=== PATIENT | female | born 2000 | race Caucasian/White ===

== ENCOUNTER 2023-03-08 15:34 | Outpatient (REF) | payer BC, SELFPAY ==
[2023-03-08 16:35] LABS: MANUAL DIFF FLAG NO
[2023-03-08 16:38] LABS: Basophils Absolute Auto 0.1 X10*3/uL (0.0-0.2); Basophils Percent Auto 0.9 % (0-2); Eosinophils Absolute Auto 0.2 X10*3/uL (0.0-0.4); Eosinophils Percent Auto 2.4 % (0-4); Hematocrit 43.5 % (37.0-47.0); Hemoglobin 14.5 g/dl (12.0-16.0); Imm Gran Abs Auto 0.02 X10*3/uL (0.00-0.03); Imm Gran Pct Auto 0.3 % (0.0-0.4); Lymphocytes Absolute Auto 2.4 X10*3/uL (1.2-4.9); Lymphocytes Percent Auto 31.2 % (20-40); Mean Corpuscular HGB Conc 33.3 g/dl (31.0-35.0); Mean Corpuscular Hemoglobin 28.8 pg (27.0-33.0); Mean Corpuscular Volume 86.3 fL (80.0-98.0); Mean Platelet Volume 9.1 fL (9.4-12.3); Monocytes Absolute Auto 0.5 X10*3/uL (0.1-1.2); Monocytes Percent Auto 6.3 % (2-11); Neutrophils Absolute Auto 4.5 x10*3/uL (2.0-8.3); Neutrophils Percent Auto 58.9 % (45-73); Platelet Count 286 X10*3/uL (160-400); Red Blood Count 5.04 X10*6/uL (4.20-5.50); Red Cell Distribution Width 12.1 % (11.0-16.0); White Blood Count 7.6 X10*3/uL (4.8-10.8)
[2023-03-08 17:39] LABS: Alanine Aminotransferase 13 U/L (0-31); Albumin Level 4.9 g/dL (3.5-5.0); Alkaline Phosphatase 49 U/L (39-117); Anion Gap 14 (12-20); Aspartate Amino Transferase 17 U/L (5-31); Bilirubin Total 1.1 mg/dL (0.0-1.0); Blood Urea Nitrogen 11 mg/dL (9-16); C Reactive Protein < 0.10 mg/dL (< or = 0.50); Calcium 10.3 mg/dL (8.4-10.2); Carbon Dioxide 23 mmol/L (22-29); Chloride 105 mmol/L (96-108); Estimated Glomerular Filt Rate > 60; Glucose Random 80 mg/dL (60-115); Sodium 138 mmol/L (135-145); Total Protein 8.4 g/dL (6.5-8.0)
[2023-03-08 17:55] LABS: TSH reflex Free T4 1.07 uIU/mL (0.32-4.0)
[2023-03-11 13:03] LABS: Transglutaminase Ab IgG <1.0 U/mL; Transglutaminase IgA <1.0 U/mL
== END 2023-03-08 15:35 | disposition home or self-care (01) ==
LOC: HO.LAB 15:34
PROVIDERS: PCP Nurse Practitioner Family; Visit Provider Nurse Practitioner
DX: R19.7 Diarrhea, unspecified (principal); Z91.09 Other allergy status, other than to drugs and biological substances
CPT/HCPCS: 36415; 80053; 84443; 85025; 86003; 86140; 86364

== ENCOUNTER 2023-03-08 15:34 | Outpatient (AMB) | payer BC, SELFPAY ==
--- NOTE | 2023-03-08 15:35 | MHC.OFFVIS ---
Intake Vital Signs 03/08/23 15:39 Height 5 ft 7 in Weight 132 lb 11.492 oz BMI 20.8 BP 104/62 Blood Pressure Location Lt brachial Position Sitting Pulse 57 Intake Visit Reasons: Irritable bowel syndrome Intake Note: Patient presents to in office visit today as a new patient for suspected IBS. CC: Patient reports that what she wakes up in the morning she has diarrhea, but other than that she is usually constipated. Also, reports having diarrhea at least once a week after dinner. Pt saw blood in the stool about a month ago. She also reports occasional, nausea, abdominal pain, and acid reflux. 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 She is referred by Nel Thomson .JUAN CARLOS [facility] practices in [facility]. PMX Diarrhea History of scoliosis * SURGICAL HISTORY [place] teeth extraction * ALLERGIES: NKDA * Octapoly LABS: None sent to us and none are in our system TODAY'S VISIT.. The problem started her first year of HS and she would have diarrhea. This did not happen when she did not have to wake up early in college. Now that she has a job that requires getting up early it started happening again. She will also have diarrhea about 2 x a week after supper with urgency. Over the summer she tends to have more CIC. If she holds her diarrheal stools then she will not move her bowels for 2-3 days which she characterizes as CIC but when she does move them the stools are soft. It will take 2-3 months to calm down. The diarrhea does not completely stop, it is just less. No testing done to date. She does not eat as much when she works but no difference in the types of foods eaten. Her brother has IBS. His was anxiety related and he seemed to have similar issues. Her mother is a pt here and has TICS but may have other bowel problems. Mom and brother are allergic to Kiwi. She has not been tested. No medication trials. She is not a fan of medicines and would rather get testing first. She does not have HB, but her mother had esophagitis and no sensation of HB. She had lost wt initially with the diarrhea, but then gained it back. She has had some nausea in the am. No vomiting and no dysphagia. We discussed the fiber supplement is a bowel equalize her as well as peppermint IBD card. Return office visit in 3 weeks [facility] Surgical History (Updated 03/08/23 @ 15:45 by MILAGROS Hanna) No pertinent past surgical history Family History (Updated 03/08/23 @ 15:44 by MILAGROS Hanna) Maternal Aunt Breast cancer Maternal Grandfather Leukemia Brother History of IBS Mother Diverticulosis GERD (gastroesophageal reflux disease) Social History Alcohol intake: never Patient Tobacco Use Status: Never used Tobacco Review of Systems Const Denies fatigue, Denies fever(s), Denies night sweats, Denies poor appetite and Denies weight loss Eyes Details: glasses Reports requires corrective lenses ENT Reports Normal hearing present, Denies dental pain, Denies dysphagia, Denies hearing loss, Denies mouth pain, Denies odynophagia, Denies throat swelling, Denies tongue swelling and Reports other (Dentition adequate) Card Reports no additional complaints Resp Reports no additional complaints GI Denies abdominal pain, Denies melena, Denies bloating, Denies hematochezia, Denies constipation, Reports GI cramping, Denies dysphagia, Denies excessive flatus, Denies early satiety, Denies heartburn, Reports diarrhea, Reports nausea, Denies odynophagia, Denies vomiting and Denies hematemesis Skin/Breast Denies pruritus, Denies lesions, Denies rash and Denies jaundice Neuro Reports Normal hearing present and Denies Abnormal speech present Endo Denies fatigue Aller/Immun Denies throat swelling and Denies tongue swelling Physical Exam Const General: cooperative, no acute distress, well developed and well groomed Nutritional Appearance: average body habitus and well nourished Orientation/consciousness: oriented to person, oriented to place and oriented to time Limitations: No language barrier HEENT Head: Yes normocephalic and Yes atraumatic Eyes General: appearance normal, both eyes and all related structures Pupils: Equal, round and reactive pupils present Neck Neck: Yes normal visual inspection and Yes no lymphadenopathy Thyroid: Thyroid normal Resp Effort & Inspection: normal respiratory effort and able to speak in complete sentences Auscultation: clear to auscultation bilaterally Cardio Rate: regular rate Rhythm: regular rhythm Heart sounds: Normal, physiologic split S2 sound present Peripheral pulses: radial pulses present and posterior tibial pulses present GI Inspection: No distended and No Abdominal panniculus present Palpation (GI): Soft to palpation, nontender, no guarding, not rigid and No hepatosplenomegaly present Percussion: Yes normal to percussion Auscultation: normal bowel sounds Rectal Exam - Female: deferred Skin General skin exam: no rashes or lesions noted, turgor normal, skin not dry, no jaundice, No spider nevi and no striae Rashes: no rashes Nails: normal Neuro General: oriented to person, oriented to place and oriented to time Cranial nerves: Yes Equal, round and reactive pupils present and Yes Normal hearing present Speech: No Abnormal speech present Extrem General: Yes normal to inspection, No clubbing, No cyanosis and No edema Psych Appearance: grossly normal and well kempt Mental Status: mental status grossly normal Speech and movement: Normal speech and movement present Affect: normal affect Attitude: cooperative Thought process: Normal thought process present and not confabulating Thought content: Normal thought content present Insight: Limited insight present (Psych) Judgement: Limited judgement present (Psych) Assessment & Plan Assessment & Plan (1) Diarrhea: Code(s): R19.7 - Diarrhea, unspecified Plan: The problem started her first year of HS and she would have diarrhea. This did not happen when she did not have to wake up early in college. Now that she has a job that requires getting up early it started happening again. She will also have diarrhea about 2 x a week after supper with urgency. Over the summer she tends to have more CIC. If she holds her diarrheal stools then she will not move her bowels for 2-3 days which she characterizes as CIC but when she does move them the stools are soft. It will take 2-3 months to calm down. The diarrhea does not completely stop, it is just less. No testing done to date. She does not eat as much when she works but no difference in the types of foods eaten. Her brother has IBS. His was anxiety related and he seemed to have similar issues. Her mother is a pt here and has TICS but may have other bowel problems. Mom and brother are allergic to Kiwi. She has not been tested. No medication trials. She is not a fan of medicines and would rather get testing first. She does not have HB, but her mother had esophagitis and no sensation of HB. She had lost wt initially with the diarrhea, but then gained it back. She has had some nausea in the am. No vomiting and no dysphagia. We discussed the fiber supplement is a bowel equalize her as well as peppermint IBD card. Return office visit in 3 weeks Orders: Orders Complete Blood Count Auto Diff Today R19.7 - Diarrhea, unspecified Pancreatic Elastase-1 Today R19.7 - Diarrhea, unspecified Rast Allergen Today R19.7 - Diarrhea, unspecified Comprehensive Met. Panel Today R19.7 - Diarrhea, unspecified C Reactive Protein Today R19.7 - Diarrhea, unspecified Transglutaminase IgA Today R19.7 - Diarrhea, unspecified Transglutaminase Ab IgG Today R19.7 - Diarrhea, unspecified TSH reflex Free T4 Today R19.7 - Diarrhea, unspecified GI Panel Today R19.7 - Diarrhea, unspecified Coding Level of Care Code New Pt Level 3 (23733) Diagnoses Diarrhea R19.7
[2023-03-08 15:39] VITALS: BP 104/62; PULSE 57; BMI 20.8
== END 2023-03-08 16:18 | disposition home or self-care (01) ==
PROVIDERS: PCP Nurse Practitioner Family; Visit Provider Nurse Practitioner
DX: R19.7 Diarrhea, unspecified (principal)
CPT/HCPCS: 99203

== ENCOUNTER 2023-03-09 10:49 | Outpatient (REF) | payer BC, SELFPAY ==
[2023-03-09 12:27] LABS: Adenovirus F 40/41 Not Detected (Not Detect.); Astrovirus Not Detected (Not Detect.); Campylobacter Not Detected (Not Detect.); Cryptosporidium Not Detected (Not Detect.); Cyclospora cayetanensis Not Detected (Not Detect.); E. coli EAEC Not Detected (Not Detect.); E. coli EPEC Not Detected (Not Detect.); E. coli ETEC Not Detected (Not Detect.); E. coli STEC Not Detected (Not Detect.); Entamoeba histolytica Not Detected (Not Detect.); Giardia lamblia Not Detected (Not Detect.); Norovirus GI/GII Not Detected (Not Detect.); Plesiomonas shigelloides Not Detected (Not Detect.); Rotavirus A Not Detected (Not Detect.); Salmonella Not Detected (Not Detect.); Sapovirus Not Detected (Not Detect.); Shigella sp./EIEC Not Detected (Not Detect.); Vibrio Not Detected (Not Detect.); Vibrio Cholerae Not Detected (Not Detect.); Yersinia enterocolitica Not Detected (Not Detect.)
[2023-03-16 17:24] LABS: Pancreatic Elastase-1 >500 mcg/g
== END 2023-03-09 10:50 | disposition home or self-care (01) ==
LOC: HO.LNP 10:49
PROVIDERS: Visit Provider Nurse Practitioner
DX: R19.7 Diarrhea, unspecified (principal)
CPT/HCPCS: 82656; 87507

== ENCOUNTER 2023-03-29 16:04 | Outpatient (AMB) | payer BC, SELFPAY ==
--- NOTE | 2023-03-29 16:06 | A.OFFVIS_ITS ---
Intake Vital Signs 03/29/23 16:07 Height 5 ft 7 in Weight 134 lb 0.657 oz BMI 21.0 BP 101/60 Blood Pressure Location Lt brachial Position Sitting Pulse 62 Intake Visit Reasons: 3 week follow up Intake Note: Patient presents to in office visit today in follow up of labs and suspected IBS. CC: Patient reports doing slightly better but continues to have symptoms of occasional diarrhea, nausea, abd pain, and acid reflux. Denies new GI symptoms. 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 This did not happen when she did not have to wake up early in college. Now that she has a job that requires getting up early it started happening again. She will also have diarrhea about 2 x a week after supper with urgency. Over the summer she tends to have more CIC. If she holds her diarrheal stools then she will not move her bowels for 2-3 days which she characterizes as CIC but when she does move them the stools are soft. It will take 2-3 months to calm down. The diarrhea does not completely stop, it is just less. No testing done to date. She does not eat as much when she works but no difference in the types of foods eaten. Her brother has IBS. His was anxiety related and he seemed to have similar issues. Her mother is a pt here and has TICS but may have other bowel problems. Mom and brother are allergic to Kiwi. She has not been tested. No medication trials. She is not a fan of medicines and would rather get testing first. She does not have HB, but her mother had esophagitis and no sensation of HB. She had lost wt initially with the diarrhea, but then gained it back. She has had some nausea in the am. No vomiting and no dysphagia. We discussed the fiber supplement is a bowel equalize her as well as peppermint AND IB GUARD. Return office visit in 3 weeks Orders: Orders Complete Blood Cou nt Auto Diff Today R19.7 - Diarrhea, unspecified Pancreatic Elastas e-1 Today R19.7 - Diarrhea, unspecified Rast Allergen Today R19.7 - Diarrhea, unspecified Comprehensive Met. Panel Today R19.7 - Diarrhea, unspecified C Reactive Protein Today R19.7 - Diarrhea, unspecified Transglutaminase I gA Today R19.7 - Diarrhea, unspecified Transglutaminase A b IgG Today R19.7 - Diarrhea, unspecified TSH reflex Free T4 Today R19.7 - Diarrhea, unspecified GI Panel Today R19.7 - Diarrhea, unspecified LABS: Laboratory Tests 03/08/23 03/09/23 16:33 09:40 WBC 7.6 Hgb 14.5 Hct 43.5 Plt Count 286 Estimated GFR > 60 Total Bilirubin 1.1 H AST 17 ALT 13 Alkaline Phosphata se 49 C-Reactive Protein < 0.10 TSH 1.07 Stool Pancreat Anabel stase >500 Tiss Transglutamin IgG <1.0 Tiss Transglutamin IgA <1.0 03/09/23-[address]: ORDERED: GI Panel Test Result Flag Reference Site Campylobacter Not Detected Not Detect. P. shigelloides Not Detected Not Detect. Salmonella Not Detected Not Detect. Vibrio Not Detected Not Detect. Vibrio Cholerae Not Detected Not Detect. Y. enterocolit. Not Detected Not Detect. E. coli EAEC Not Detected Not Detect. E. coli EPEC Not Detected Not Detect. E. coli ETEC Not Detected Not Detect. E. coli STEC Not Detected Not Detect. E. coli O157 Not applicable Not Detect. E. coli containing the O157 antigen are a subset of Shiga-like toxin-producing E. coli (STEC). Shigella/EIEC Not Detected Not Detect. Cryptosporidium Not Detected Not Detect. Cyclospora Not Detected Not Detect. E. histolytica Not Detected Not Detect. Giardia lamblia Not Detected Not Detect. Adenovirus Not Detected Not Detect. Astrovirus Not Detected Not Detect. Norovirus Not Detected Not Detect. Rotavirus A Not Detected Not Detect. Sapovirus Not Detected Not RAST ALLERGEN PANEL SHOWS NO SIGNIFICANT FOOD ALLERGY TODAY'S VISIT A low FODMAP diet printed for her for consideration of food intolerance.. We review the tests and there is no food allergy on the RAST panel, no celiac di sease, no infectious causes, and no elevated CRP to indicate inflammatory bowel disease. Of course, something like IBD sometimes can manifest slowly over years but given her brothers IBS diagnosis this seems less likely. For now I given the option of continuing to make regular appointments with me but she opts take the information and some samples of IBD guard and work on it herself. If her symptoms worsen or she needs more input for me she is always welcome to return to our services. She is relieved to know there is nothing serious wrong. She was more active in high school in admits this could have been out liver her anxiety and it is possible that there is some sub conscious element to her anxiety given her change in lifestyle from living at home to being at school working etc.. She is going to try to see if she can be more active again. [facility] Medical History (Updated 03/29/23 @ 16:18 by ABRAN Wallace) Diarrhea Surgical History No pertinent past surgical history Family History Maternal Aunt Breast cancer Maternal Grandfather Leukemia Brother History of IBS Mother Diverticulosis GERD (gastroesophageal reflux disease) Social History Alcohol intake: never Patient Tobacco Use Status: Never used Tobacco Review of Systems Const Denies fatigue, Denies fever(s), Denies night sweats, Denies poor appetite and Denies weight loss Eyes Details: glasses Reports requires corrective lenses ENT Reports Normal hearing present, Denies dental pain, Denies dysphagia, Denies h earing loss, Denies mouth pain, Denies odynophagia, Denies throat swelling, Denies tongue swelling and Reports other (Dentition adequate) Card Reports no additional complaints Resp Reports no additional complaints GI Denies abdominal pain, Denies melena, Denies bloating, Denies hematochezia, Denies constipation, Denies GI cramping, Denies dysphagia, Denies excessive flatus, Denies early satiety, Denies heartburn, Reports diarrhea, Denies nausea, Denies odynophagia, Denies vomiting and Denies hematemesis Skin/Breast Denies pruritus, Denies lesions, Denies rash and Denies jaundice Neuro Reports Normal hearing present and Denies Abnormal speech present Endo Denies fatigue Aller/Immun Denies throat swelling and Denies tongue swelling Physical Exam Vital Signs: Last Vital Signs Pulse 62 03/29/23 16:07 BP 101/60 03/29/23 16:07 BMI result Body Mass Index 21.0 Const General: cooperative, no acute distress, well developed and well groomed Nutritional Appearance: well nourished and thin Orientation/consciousness: oriented to person, oriented to place and oriented to time Limitations: No language barrier HEENT Head: Yes normocephalic and Yes atraumatic Eyes General: appearance normal, both eyes and all related structures Pupils: Equal, round and reactive pupils present Neck Neck: Yes normal visual inspection and Yes no lymphadenopathy Thyroid: Thyroid normal Resp Effort & Inspection: normal respiratory effort and able to speak in complete sentences Auscultation: clear to auscultation bilaterally Cardio Rate: regular rate Rhythm: regular rhythm Heart sounds: Normal, physiologic split S2 sound present Peripheral pulses: radial pulses present and posterior tibial pulses present GI Inspection: No distended and No Abdominal panniculus present Palpation (GI): Soft to palpation, nontender, no guarding, not rigid and No hepatosplenomegaly present Percussion: Yes normal to percussion Auscultation: normal bowel sounds Rectal Exam - Female: deferred Skin General skin exam: no rashes or lesions noted, turgor normal, skin not dry, no jaundice, No spider nevi and no striae Rashes: no rashes Nails: normal Neuro General: oriented to person, oriented to place and oriented to time Cranial nerves: Yes Equal, round and reactive pupils present and Yes Normal hearing present Speech: No Abnormal speech present Extrem General: Yes normal to inspection, No clubbing, No cyanosis and No edema Psych Appearance: grossly normal and well kempt Mental Status: mental status grossly normal Speech and movement: Normal speech and movement present Affect: normal affect Attitude: cooperative Thought process: Normal thought process present and not confabulating Thought content: Normal thought content present Insight: Good insight present (Psych) Judgement: Good judgement present (Psych) Results Reviewed Results Reviewed: Laboratory Tests 03/08/23 03/09/23 16:33 09:40 WBC 7.6 Hgb 14.5 Hct 43.5 Plt Count 286 Estimated GFR > 60 Total Bilirubin 1.1 H AST 17 ALT 13 Alkaline Phosphatase 49 C-Reactive Protein < 0.10 TSH 1.07 Stool Pancreat Elastase >500 Tiss Transglutamin IgG <1.0 Tiss Transglutamin IgA <1.0 03/09/23-[address]: ORDERED: GI Panel Test Result Flag Reference Site Campylobacter Not Detected Not Detect. P. shigelloides Not Detected Not Detect. Salmonella Not Detected Not Detect. Vibrio Not Detected Not Detect. Vibrio Cholerae Not Detected Not Detect. Y. enterocolit. Not Detected Not Detect. E. coli EAEC Not Detected Not Detect. E. coli EPEC Not Detected Not Detect. E. coli ETEC Not Detected Not Detect. E. coli STEC Not Detected Not Detect. E. coli O157 Not applicable Not Detect. E. coli containing the O157 antigen are a subset of Shiga-like toxin-producing E. coli (STEC). Shigella/EIEC Not Detected Not Detect. Cryptosporidium Not Detected Not Detect. Cyclospora Not Detected Not Detect. E. histolytica Not Detected Not Detect. Giardia lamblia Not Detected Not Detect. Adenovirus Not Detected Not Detect. Astrovirus Not Detected Not Detect. Norovirus Not Detected Not Detect. Rotavirus A Not Detected Not Detect. Sapovirus Not Detected Not RAST ALLERGEN PANEL SHOWS NO SIGNIFICANT FOOD ALLERGY Assessment & Plan Assessment & Plan (1) Irritable bowel syndrome with diarrhea: Comment: NEGATIVE RAST FOR FOOD ALLERGIES, NEGATIVE CELIAC WORKUP, NEGATIVE CRP Code(s): K58.0 - Irritable bowel syndrome with diarrhea Plan: Plan A low FODMAP diet printed for her for consideration of food intolerance.. We review the tests and there is no food allergy on the RAST panel, no celiac disease, no infectious causes, and no elevated CRP to indicate inflammatory bowel disease. Of course, something like IBD sometimes can manifest slowly over years but given her brothers IBS diagnosis this seems less likely. For now I given the option of continuing to make regular appointments with me but she opts take the information and some samples of IBD guard and work on it herself. If her symptoms worsen or she needs more input for me she is always welcome to return to our services. She is relieved to know there is nothing serious wrong. She was more active in high school in admits this could have been out liver her anxiety and it is possible that there is some sub conscious element to her anxiety given her change in lifestyle from living at home to being at school working etc.. She is going to try to see if she can be more active again. Again she does not like medications so that is why we have not opted for dicyclomine. Coding Level of Care Code Est Pt Level 3 (19063) Diagnoses Irritable bowel syndrome with diarrhea K58.0
[2023-03-29 16:07] VITALS: BP 101/60; PULSE 62; BMI 21.0
== END 2023-03-29 16:29 | disposition home or self-care (01) ==
PROVIDERS: PCP Nurse Practitioner Family; Visit Provider Nurse Practitioner
DX: K58.0 Irritable bowel syndrome with diarrhea (principal)
CPT/HCPCS: 99213

== ENCOUNTER → 2023-03-29 16:04 | Outpatient (BNVA) | payer BC, SELFPAY | PROVIDERS: PCP Nurse Practitioner Family; Visit Provider Nurse Practitioner ==

== ENCOUNTER 2024-05-15 13:55 | Outpatient (AMB) | payer BC, SELFPAY ==
[2024-05-15 14:09] VITALS: BP 92/54; PULSE 72
--- NOTE | 2024-05-15 14:09 | A.OFFVIS_ITS ---
Vital Signs 05/15/24 14:09 Height 5 ft 7 in Weight 127 lb 13.89 oz BMI 20.0 BP 92/54 L Blood Pressure Location Rt brachial Position Sitting Pulse 72 Intake Visit Reasons: IBS follow up Intake Note: Patient in office today in follow up of IBS. CC: Patient reports that a few weeks ago she went to the ER at [facility] with diarrhea. Per patient she was told that she was colitis. She is having now about 8 loose BMs daily. She also reports weight loss and eating smaller portions and less to avoid having to go to the bathroom. Allergies No Known Allergies Allergy (Verified 05/15/24 14:18) HPI HPI IBS follow up: Details: Assessment & Plan (1) Irritable bowel syndrome with diarrhea: Comment: NEGATIVE RAST FOR FOOD ALLERGIES, NEGATIVE CELIAC WORKUP, NEGATIVE CRP Code(s): K58.0 - Irritable bowel syndrome with diarrhea Plan: Plan A low FODMAP diet printed for her for consideration of food intolerance.. We review the tests and there is no food allergy on the RAST panel, no celiac disease, no infectious causes, and no elevated CRP to indicate inflammatory bowel disease. Of course, something like IBD sometimes can manifest slowly over years but given her brothers IBS diagnosis this seems less likely. For now I given the option of continuing to make regular appointments with me but she opts take the information and some samples of IBD guard and work on it herself. If her symptoms worsen or she needs more input for me she is always welcome to return to our services. She is relieved to know there is nothing serious wrong. She was more active in high school in admits this could have been out liver her anxiety and it is possible that there is some sub conscious element to her anxiety given her change in lifestyle from living at home to being at school working etc.. She is going to try to see if she can be more active again. Again she does not like medications so that is why we have not opted for dicyclomine. TODAYS VISIT Pt has been lost to follow up since 2022 Her IBS was resolving and she was dong well....until she developed some sort of severe diarrhea infe tion. Presented to the [facility] ER where they did a CT scan and told her she had colitis. However on reviewing that CT scan there was absolutely no indication of any colitis just that there was diarrhea and the colon. I think they were confused between the fat stranding found with the ovarian cyst. They did not do any stool studies but she did have leukocytosis of 12,000. It is entirely likely that this was either bacterial or viral but since it is now resolving and her stooling has been soft it is likely fruit list to do any stool testing. She continues to have severe fecal urgency and is moving her bowels up to 5 times a day despite the fact that the bowels are soft to formed. Obviously this is problem for her. I think what we are going to do is treat her with Zithromax as this covered the most amount of bacterial pathogens since it is too late to do stool samples and will give her some dicyclomine to use to try to ease her bowels. It is also entirely possible she is just having postinfectious bowel irritability because of the IBS. If it is not resolving or worsens then certainly we can consider doing additional testing. Return office visit at next available appointment. [facility] Medical History Diarrhea Surgical History No pertinent past surgical history Family History Maternal Aunt Breast cancer Maternal Grandfather Leukemia Brother History of IBS Mother Diverticulosis GERD (gastroesophageal reflux disease) Social History Alcohol intake: never Patient Tobacco Use Status: Never used Tobacco Review of Systems Eyes Details: glasses Physical Exam Vital Signs: Last Vital Signs Pulse 72 05/15/24 14:09 BP 92/54 L 05/15/24 14:09 BMI result Body Mass Index 20.0 Results Reviewed Results Reviewed: CT abdomen and pelvis-[facility] ER RESULT: CT Abd/Pelvis W/ IV + Oral Contrast CT Abd/Pelvis W/ IV + Oral Contrast Hx of Present Illness: pt had abd pain yesterday and thought she was constipated so she took a laxative. Has had over 20 episodes of diarrhea since. Hx of ib. Had nausea yesterday. RLQ pain; Reason: Other:; Generalized Abdominal Pain r o Appendicitis; Clinical Question(s): Appendicitis TECHNIQUE: Spiral CT through the abdomen and pelvis with IV contrast formatted in 3 planes. 75 cc of Isovue 300 was administered intravenously. This study was performed with oral contrast. Weight-based protocol using automatic tube modulation was used to optimize exposure parameters. CTDIvol Body: 8.09 mGy, DLP Body: 397 mGy*cm. COMPARISON: Correlation with subsequently performed pelvic ultrasound 04/26/2024. FINDINGS: Sales Lead Generator View Findings, Lines and Tubes: None. Visualized Chest: Lung bases are clear. No pleural effusion. The heart is normal in size. No pericardial effusion. Diaphragm: Normal. Liver: Normal. Gallbladder: Normal. No CT evidence of gallbladder pathology. Bile ducts: No biliary ductal dilation. Spleen: Normal. Pancreas: Normal. Adrenal glands: Normal. Kidneys and ureters: No hydronephrosis, stones, or suspicious masses. Bladder: Within normal limits for completely collapsed state. Reproductive organs: There is a 7.6 x 6.5 cm pelvic cystic mass which abuts and appears to arise from the LEFT ovary, density measurement of 12-14 Hounsfield units. It is slightly thick-walled, especially along the inferior aspect. There is an adjacent smaller up to 2.0 cm cystic lesion adjacent to the LEFT lateral margin. Adjacent fat stranding and mild adjacent free fluid, some of which is slightly higher than simple fluid density. Normal uterus. Stomach, small bowel, and large bowel: Normal caliber. No bowel obstruction or bowel wall thickening. No surrounding inflammatory fat stranding. Fluid within the colon suggestive of diarrhea. Appendix: No evidence of acute appendicitis. Peritoneum and retroperitoneum: Minimal free pelvic fluid, some of the fluid measuring density slightly greater than that of simple fluid. No omental or mesenteric lesions. No free air. Lymph nodes: No enlarged lymph nodes. Blood vessels: Normal. No aneurysm. No evidence of venous thrombosis. Abdominal and pelvic wall: Unremarkable. Bones: No acute abnormality. IMPRESSION: 1. Pelvic cystic mass measuring up to 7.6 cm which appears to arise from the LEFT ovary with heterogeneous thick wall. Adjacent fat stranding and minimal free fluid. Differential diagnosis includes hemorrhagic cyst, tubo-ovarian abscess, less likely endometrioma. Ovarian torsion is also considered. Preliminary [facility] report recommended pelvic ultrasound, which has already been performed at the time of final dictation. The pelvic ultrasound demonstrated a probable hemorrhagic cyst. 2. Fluid throughout the colon suggestive of diarrhea. Questionable mild wall thickening of the sigmoid colon. Agree with salient findings of preliminary report provided by [facility]. WSN: [id number] Ordering Physician: Radha Flores 10 https://[email or web address]/Rallyhood/Sqeeqee/reports/mp_unified_driver?pa rameters=^MINE^,1832 729.0,391746582.0,97449858.0,239775906.0,1121.0,%22MP_REACH%22,%22../../resou lissethes/UnifiedContent%22,%22mp_reach_v5%22,9# 04/25/24 20:17 -- -- Glucose Level ?114 https://[employer].com/Rallyhood/Sqeeqee/reports/[employer]_driver?pa rameters=^MINE^,0508192.0,215045450.0,67078987.0,328343113.0,1121.0,%22MP_REACH% 22,%22../../resources/UnifiedContent%22,%22mp_reach_v5%22,9# 04/25/24 20:17 -- -- Platelet Count 286 https://[employer].com/Rallyhood/Sqeeqee/reports/mp_unified_d river?parameters=^MINE^,3210506.0,949152128.0,49052644.0,639495635.0,1121.0,% 22MP_REACH%22,%22../../resources/UnifiedContent%22,%22mp_reach_v5%22,9# 04/25/24 20:17 -- -- WBC ?12.9 https://[employer].com/Rallyhood/Sqeeqee/reports/[employer]_driver?pa rameters=^MINE^,4510985.0,424249794.0,33866508.0,390810181.0,1121.0,%22MP_REACH% 22,%22../../resources/UnifiedContent%22,%22mp_reach_v5%22,9# 04/25/24 20:17 -- -- -HEMATOLOGY (26) WBC ?12.9 https://[employer].com/[employer]allyhood/Sqeeqee/reports/Ahal[employer]_unified_driver?pa emileeeters=^MINE^,8747570.0,469665951.0,19394937.0,504320148.0,1121.0,%22MP_REACH% 22,%22../../resources/UnifiedContent%22,%22mp_reach_v5%22,9# 04/25/24 20:17 -- -- RBC 4.91 https://[employer].com/[employer]allyhood/Sqeeqee/reports/[employer]_driver?tim hebert eters=^MINE^,4880894.0,556555740.0,95240226.0,652305321.0,1121.0,%22MP_REACH% 22,%22../../resources/UnifiedContent%22,%22mp_reach_v5%22,9# 04/25/24 20:17 -- -- Hgb 14.4 https://[employer].com/[employer]hood/Sqeeqee/reports/[employer]_driver?tim heberteters=^MINE^,0948806.0,504294152.0,62803152.0,978637880.0,1121.0,%22MP_REACH% 22,%22../../resources/UnifiedContent%22,%22mp_reach_v5%22,9# 04/25/24 20:17 -- -- Hct 41.7 https://[employer].com/[employer]/Sqeeqee/reports/Ahal[employer]_unified_driver?tim fermin s=^MINE^,9421203.0,112041895.0,02061419.0,004672043.0,1121.0,%22MP_REACH%22,% 22../../resources/UnifiedContent%22,%22mp_reach_v5%22,9# 04/25/24 20:17 -- -- MCV 84.9 https://[employer].com/[employer]/Sqeeqee/reports/mp_unified_driver?pa rameters=^MINE^,2601738.0,752397860.0,67307715.0,401191981.0,1121.0,%22MP_REACH% 22,%22../../resources/UnifiedContent%22,%22mp_reach_v5%22,9# 04/25/24 20:17 -- -- MCH 29.3 https://[employer].com/[employer]/Sqeeqee/reports/mp_unified_driver?pa rameters=^M INE^,5116080.0,273396038.0,89031431.0,640880192.0,1121.0,%22MP_REACH%22,%22.. /../resources/UnifiedContent%22,%22mp_reach_v5%22,9# 04/25/24 20:17 -- -- MCHC 34.5 https://[employer].com/[employer]/Sqeeqee/reports/mp_unified_driver?pa rameters=^MINE^,5375640.0,390784014.0,57052817.0,322039991.0,1121.0,%22MP_REACH% 22,%22../../resources/UnifiedContent%22,%22mp_reach_v5%22,9# 04/25/24 20:17 -- -- Platelet Count 286 https://[employer].com/[employer]hood/Sqeeqee/reports/mp_unified_driver?pa emileee ters=^MINE^,5860029.0,165423741.0,70326545.0,936060155.0,1121.0,%22MP_REACH%2 2,%22../../resources/UnifiedContent%22,%22mp_reach_v5%22,9# 04/25/24 20:17 -- -- RDW-SD 37.6 https://[employer].com/[employer]allyhood/Sqeeqee/reports/mp_unified_driver?pa rameters=^MINE^,1437462.0,881744220.0,72620899.0,836422563.0,1121.0,%22MP_REACH% 22,%22../../resources/UnifiedContent%22,%22mp_reach_v5%22,9# 04/25/24 20:17 -- -- MPV 9.4 https://[employer].com/[employer]allyhood/Sqeeqee/reports/mp_unified_driver?pa ramete rs=^MINE^,6405411.0,730111361.0,05466214.0,872607754.0,1121.0,%22MP_REACH%22, %22../../resources/UnifiedContent%22,%22mp_reach_v5%22,9# 04/25/24 20:17 -- -- Nucleated RBC (Automated) 0.0 https://[employer].com/Rallyhood/Sqeeqee/reports/mp_unified_driver?pa rameters=^MINE^,6301033.0,057636252.0,87712142.0,594204782.0,1121.0,%22MP_REACH% 22,%22../../resources/UnifiedContent%22,%22mp_reach_v5%22,9# 04/25/24 20:17 -- -- Abs. NRBC 0.0 https://[employer].com/[employer]allyhood/Sqeeqee/reports/mp_u nified_driver?parameters=^MINE^,9375871.0,025413755.0,99518217.0,277140871.0, 1121.0,%22MP_REACH%22,%22../../resources/UnifiedContent%22,%22mp_reach_v5%22,9# 04/25/24 20:17 -- -- Abs. Neut ?10.6 https://[employer].com/[employer]hood/Sqeeqee/reports/mp_unified_driver?pa rameters=^MINE^,0601734.0,550047887.0,98010161.0,020807828.0,1121.0,% 22MP_REACH%22,%22../../resources/UnifiedContent%22,%22mp_reach_v5%22,9# 04/25/24 20:17 -- -- Abs. Lymph 1.1 https://[employer].com/[employer]allyhood/ Sqeeqee/reports/mp_unified_driver?parameters=^MINE^,2925649.0,917050984.0,2702 5013.0,019269649.0,1121.0,%22MP_REACH%22,%22../../resources/UnifiedContent%22,%2 2mp_reach_v5%22,9# 04/25/24 20:17 -- -- Abs. Reagan ?1.1 https://[employer].com/[employer]allyhood/Sqeeqee/reports/mp_unified_driver?pa rameters=^MINE^,2142663.0,196159363.0,96745315.0,30 8974960.0,1121.0,%22MP_REACH%22,%22../../resources/UnifiedContent%22,%22mp_re ach_v5%22,9# 04/25/24 20:17 -- -- Abs. Eo 0.0 https://[employer]!/Rallyhood/Sqeeqee/reports/mp_unified_driver?parameters=^MINE^,0138317.0,1 54591092.0,64888411.0,622762073.0,1121.0,%22MP_REACH%22,%22../../resources/Unifi edContent%22,%22mp_reach_v5%22,9# 04/25/24 20:17 -- -- Abs. Baso 0.1 https://[employer].com/[employer]/Sqeeqee/reports/mp_unified_driver?pa rameters=^MINE^,0950967.0,913661783.0,28510812. 0,244898988.0,1121.0,%22MP_REACH%22,%22../../resources/UnifiedContent%22,%22m p_reach_v5%22,9# 04/25/24 20:17 -- -- Neut % ?81.7 https://[employer]/Rallyhood/Sqeeqee/reports/mp_unified_driver?parameters=^MT NE^,7530361.0,232190359.0,83267161.0,244995115.0,1121.0,%22MP_REACH%22,%22../../ resources/UnifiedContent%22,%22mp_reach_v5%22,9# 04/25/24 20:17 -- -- Lymph % ?8.7 https://[employer].com/[employer]hood/Sqeeqee/reports/mp_unified_driver?pa rameters=^MINE^,1219986 .0,883967722.0,14099376.0,627539071.0,1121.0,%22MP_REACH%22,%22../../resource s/UnifiedContent%22,%22mp_reach_v5%22,9# 04/25/24 20:17 -- -- Reagan % 8.7 https://[employer].com/[employer]hood/Sqeeqee/reports/Ahalogy_unified_driver?pa rameters=^MINE^,6609827.0,795589131.0,15248638.0,840140998.0,1121.0,%22MP_REACH% 22,%22../../resources/UnifiedContent%22,%22mp_reach_v5%22,9# 04/25/24 20:17 -- -- Eos % 0.2 https://[employer].com/[employer]hood/Sqeeqee/reports/mp_unified_driver?pa rameters=^MINE^,9983695. 0,491360836.0,97495724.0,738100118.0,1121.0,%22MP_REACH%22,%22../../resources /UnifiedContent%22,%22mp_reach_v5%22,9# 04/25/24 20:17 -- -- Baso % 0.4 h ttps://[employer].com/[employer]allyhood/Sqeeqee/reports/mp_unified_driver?par ameters=^MINE^,0074878.0,318309859.0,45661746.0,860231278.0,1121.0,%22MP_REACH%2 2,%22../../resources/UnifiedContent%22,%22mp_reach_v5%22,9# 04/25/24 20:17 -- -- Imm Gran 0.3 https://[employer].com/[employer]hood/Sqeeqee/reports/Ahalogy_unified_driver?pa rameters=^MINE^,227605 9.0,576320565.0,73925375.0,664905194.0,1121.0,%22MP_REACH%22,%22../../resourc es/UnifiedContent%22,%22mp_reach_v5%22,9# 04/25/24 20:17 -- -- Abs. Imm Gran 0.0 https://[employer].com/Rallyhood/Sqeeqee/reports/Ahalogy_unified_driver?pa rameters=^MINE^,8034828.0,205171480.0,06070205.0,703949436.0,1121.0,%22MP_REACH% 22,%22../../resources/UnifiedContent%22,%22mp_reach_v5%22,9# 04/25/24 20:17 -- -- Hold Lavender Top SPECIMEN DISCARDED AFTER 24 HOURS. https://[employer]i.com/Rallyhood/Sqeeqee/r eports/mp_unified_driver?parameters=^MINE^,2633550.0,599547934.0,19240531.0,3 71617448.0,1121.0,%22MP_REACH%22,%22../../resources/UnifiedContent%22,%22mp_reac h_v5%22,9# 04/26/24 09:14 -- -- Hold Blue Top SPECIMEN DISCARDED AFTER 4 HOURS. https://[employer]i.com/[employer]hood/Sqeeqee/reports/mp_unified_driver?pa rameters=^MINE^,6806092.0,733202469. 0,56304764.0,842151273.0,1121.0,%22MP_REACH%22,%22../../resources/UnifiedCont ent%22,%22mp_reach_v5%22,9# 04/25/24 20:17 -- -- -CHEMISTRY (23) Sodium 134 https://[employer].com/[employer]hood/Sqeeqee/reports/mp_unified_driver?pa rameters=^MINE^,3613182.0,244916937.0,15018961.0,176930758.0,112 1.0,%22MP_REACH%22,%22../../resources/UnifiedContent%22,%22mp_reach_v5%22,9# 04/25/24 20:17 -- -- Potassium ?3.5 https://[employer]!/Rallyhood/Sqeeqee/reports/mp_unified_driver?parameters=^MINE^,1389936.0,1 73537701.0,82747562.0,387479322.0,1121.0,%22MP_REACH%22,%22../../resources/Unifi edContent%22,%22mp_reach_v5%22,9# 04/25/24 20:17 -- -- Chloride 99 https://[employer].com/Rallyhood/Sqeeqee/reports/mp_unified_driver?pa rameters=^MINE^,3743029.0,550210251.0,34703896.0, 285655782.0,1121.0,%22MP_REACH%22,%22../../resources/UnifiedContent%22,%22mp_ reach_v5%22,9# 04/25/24 20:17 -- -- Bicarbonate Level 22 https://[employer]/Rallyhood/Sqeeqee/reports/[employer]_driver?parameters=^MINE^, 2367313.0,211400529.0,89222047.0,108716728.0,1121.0,%22MP_REACH%22,%22../../reso annaces/UnifiedContent%22,%22mp_reach_v5%22,9# 04/25/24 20:17 -- -- Anion Gap 13 https://[employer].com/[employer]/Sqeeqee/reports/mp_unified_driver?pa rameters=^MINE^,8519826.0,072886180.0 ,17816934.0,438222695.0,1121.0,%22MP_REACH%22,%22../../resources/UnifiedConte nt%22,%22mp_reach_v5%22,9# 04/25/24 20:17 -- -- Glucose Level ?114 https://[employer].com/[employer]/Sqeeqee/reports/mp_unified_driver?pa rameters=^MINE^,4626478.0,586708786.0,99393520.0,684197136.0,1121.0,%22MP_REACH% 22,%22../../resources/UnifiedContent%22,%22mp_reach_v5%22,9# 04/25/24 20:17 -- -- BUN 10 https://[employer].com/[employer]hood/Sqeeqee/reports/[employer]_driver?pa marli=^MINE^,5386102 .0,455133513.0,99710421.0,530729997.0,1121.0,%22MP_REACH%22,%22../../resource s/UnifiedContent%22,%22mp_reach_v5%22,9# 04/25/24 20:17 -- -- Creatinine-Blood 0.79 https://[employer].com/[employer]/Sqeeqee/reports/[employer]_driver?pa marli=^MINE^,0520393.0,410984873.0,70444537.0,315983831.0,1121.0,%22MP_REACH% 22,%22../../resources/UnifiedContent%22,%22mp_reach_v5%22,9# 04/25/24 20:17 -- -- Estimated GFR Creatinine *106 https://[employer].com/[employer]hood/Sqeeqee/reports/mp_Green Generation Solutionsrocio cage?parameters=^MINE^,0924589.0,873350245.0,79737602.0,789431927.0,1121.0,%2 2MP_REACH%22,%22../../resources/UnifiedContent%22,%22mp_reach_v5%22,9# 04/25/24 20:17 -- -- Calcium 9.3 https://[employer].com/[employer]/Sqeeqee/reports/[employer]_driver?tim calles=^MINE^,6230738.0,307230555.0,12350363.0,542970862.0,1121.0,%22MP_REACH% 22,%22../../resources/UnifiedContent%22,%22mp_reach_v5%22,9# 04/25/24 20:17 -- -- Magnesium 1.9 https://[employer].com/Rallyhood/[employer]anc[employer]ages/reports/mp_unifie d_driver?parameters=^MINE^,0797334.0,114627607.0,11089774.0,751622413.0,1121. 0,%22MP_REACH%22,%22../../resources/UnifiedContent%22,%22mp_reach_v5%22,9# 04/25/24 20:17 -- -- Protein, Total ?8.3 https://[employer].com/[employer]/Sqeeqee/reports/mp_[employer]_driver?pa rameters=^MINE^,3692129.0,300731967.0,49699634.0,641602894.0,1121.0,%2 2MP_REACH%22,%22../../resources/UnifiedContent%22,%22mp_reach_v5%22,9# 04/25/24 20:17 -- -- Albumin 4.4 https://[employer].com/Rallyhood/Panceterag es/reports/mp_[employer]_driver?parameters=^MINE^,8926796.0,710807596.0,13862606 .0,359603338.0,1121.0,%22MP_REACH%22,%22../../resources/UnifiedContent%22,%22mp_ reach_v5%22,9# 04/25/24 20:17 -- -- AG Ratio 1.1 https://[employer]qeeqee/reports/mp_unified_driver?pa rameters=^MINE^,9369066.0,595560308.0,17528634.0,241768610.0,1121.0 ,%22MP_REACH%22,%22../../resources/UnifiedContent%22,%22mp_reach_v5%22,9# 04/25/24 20:17 -- -- Alkaline Phosphatase 57 https://[employer] /[employer]ee/reports/mp_unified_driver?parameters=^MINE^,4378603.0,42777 0906.0,99995917.0,258272021.0,1121.0,%22MP_REACH%22,%22../../resources/UnifiedCo ntent%22,%22mp_reach_v5%22,9# 04/25/24 20:17 -- -- Lipase 22 https://[employer]/Sqeeqee/reports/mp_unified_driver?pa rameters=^MINE^,1258113.0,390141847.0,15449450.0,967103 571.0,1121.0,%22MP_REACH%22,%22../../resources/UnifiedContent%22,%22mp_reach_ v5%22,9# 04/25/24 20:17 -- -- AST (SGOT) 15 https://[employer]. om/Rallyhood/Sqeeqee/reports/mp_unified_driver?parameters=^MINE^,3254188.0,169 770656.0,86163171.0,220316219.0,1121.0,%22MP_REACH%22,%22../../resources/Unified Content%22,%22mp_reach_v5%22,9# 04/25/24 20:17 -- -- ALT (SGPT) 12 https://[employer]/Sqeeqee/reports/mp_unified_driver?pa rameters=^MINE^,3179432.0,925579388.0,69919805.0, 147697081.0,1121.0,%22MP_REACH%22,%22../../resources/UnifiedContent%22,%22mp_ reach_v5%22,9# 04/25/24 20:17 -- -- Bilirubin, Total ?1.4 https ://[employer]/Sqeeqee/reports/mp_unified_driver?paramet ers=^MINE^,3344072.0,130111438.0,21039508.0,259106437.0,1121.0,%22MP_REACH%22,%2 2../../resources/UnifiedContent%22,%22mp_reach_v5%22,9# 04/25/24 20:17 -- -- Lactate 1.1 https://[employer]/Sqeeqee/reports/[employer]_driver?pa rameters=^MINE^,3906461.0,1 09336397.0,48578187.0,823631732.0,1121.0,%22MP_REACH%22,%22../../resources/Un ifiedContent%22,%22mp_reach_v5%22,9# 04/25/24 20:17 -- -- Beta HCG-serum, Qual NEGATIVE https://[employer]ee/reports/[employer]_driver?pa rameters=^MINE^,4676461.0,004134451.0,62172283.0,388063815.0,1121.0,%22MP_REACH% 22,%22../../resources/Fermentas InternationalContent%22,%22mp_reach_v5%22,9# 04/25/24 20:17 -- -- Hold Green Top SPECIMEN DISCARDED AFTER 1 WEEK https://[employer]qee/ reports/[employer]_driver?parameters=^MINE^,7582383.0,966623533.0,64813772.0, 885237448.0,1121.0,%22MP_REACH%22,%22../../resources/UnifiedContent%22,%22mp_rea ch_v5%22,9# 04/25/24 20:17 -- -- Hold Green Top 2 SPECIMEN DISCARDED AFTER 1 WEEK https://[employer].com/[employer]qee/reports/mp_unified_driver?pa ra meters=^BHUPINDER^,9681992.0,894932566.0,72910055.0,998167552.0,1121.0,%22MP_REACH %22,%22../../resources/UnifiedContent%22,%22mp_reach_v5%22,9# 04/25/24 20:17 Assessment & Plan Assessment & Plan (1) Irritable bowel syndrome with diarrhea: Comment: NEGATIVE RAST FOR FOOD ALLERGIES, NEGATIVE CELIAC WORKUP, NEGATIVE CRP Code(s): K58.0 - Irritable bowel syndrome with diarrhea Category: Medical (2) Enteritis: Code(s): K52.9 - Noninfective gastroenteritis and colitis, unspecified Category: Medical (3) Total bilirubin, elevated: Code(s): R17 - Unspecified jaundice Category: Medical Plan Pt has been lost to follow up since 2022 Her IBS was resolving and she was dong well....until she developed some sort of severe diarrhea infe tion. Presented to the [facility] ER where they did a CT scan and told her she had colitis. However on reviewing that CT scan there was absolutely no indication of any colitis just that there was diarrhea and the colon. I think they were confused between the fat stranding found with the ovarian cyst. They did not do any stool studies but she did have leukocytosis of 12,000. It is entirely likely that this was either bacterial or viral but since it is now resolving and her stooling has been soft it is likely fruit list to do any stool testing. She continues to have severe fecal urgency and is moving her bowels up to 5 times a day despite the fact that the bowels are soft to formed. Obviously this is problem for her. I think what we are going to do is treat her with Zithromax as this covered the most amount of bacterial pathogens since it is too late to do stool samples and will give her some dicyclomine to use to try to ease her bowels. It is also entirely possible she is just having postinfectious bowel irritability because of the IBS. If it is not resolving or worsens then certainly we can consider doing additional testing. Return office visit at next available appointment. Orders: Orders Bilirubin Total Today R17 - Unspecified jaundice Complete Blood Count Auto Diff Today R17 - Unspecified jaundice Bilirubin Direct Today R17 - Unspecified jaundice Medications: New dicyclomine 20 mg PO QID 120 tabs 3RF 30 days K58.0 - Irritable bowel syndrome with diarrhea azithromycin (Zithromax Z-Hari) For 250 mg dose pack: take 500 mg today (day 1), then 250 mg for 4 days (days 2-5) PO 6 tabs 0RF K52.9 - Noninfective gastroenteritis and colitis, unspecified Coding Level of Care Code Est Pt Level 4 (75275) Diagnoses Irritable bowel syndrome with diarrhea K58.0 Enteritis K52.9 Total bilirubin, elevated R17 Time Spent (min) 32
--- NOTE | 2024-05-15 14:09 | MHC.OFFVIS ---
Vital Signs 05/15/24 14:09 Height 5 ft 7 in Weight 127 lb 13.89 oz BMI 20.0 BP 92/54 L Blood Pressure Location Rt brachial Position Sitting Pulse 72 Intake Visit Reasons: IBS follow up Intake Note: Patient in office today in follow up of IBS. CC: Patient reports that a few weeks ago she went to the ER at [facility] with diarrhea. Per patient she was told that she was colitis. She is having now about 8 loose BMs daily. She also reports weight loss and eating smaller portions and less to avoid having to go to the bathroom. Allergies No Known Allergies Allergy (Verified 05/15/24 14:18) HPI HPI IBS follow up: Details: Assessment & Plan (1) Irritable bowel syndrome with diarrhea: Comment: NEGATIVE RAST FOR FOOD ALLERGIES, NEGATIVE CELIAC WORKUP, NEGATIVE CRP Code(s): K58.0 - Irritable bowel syndrome with diarrhea Plan: Plan A low FODMAP diet printed for her for consideration of food intolerance.. We review the tests and there is no food allergy on the RAST panel, no celiac disease, no infectious causes, and no elevated CRP to indicate inflammatory bowel disease. Of course, something like IBD sometimes can manifest slowly over years but given her brothers IBS diagnosis this seems less likely. For now I given the option of continuing to make regular appointments with me but she opts take the information and some samples of IBD guard and work on it herself. If her symptoms worsen or she needs more input for me she is always welcome to return to our services. She is relieved to know there is nothing serious wrong. She was more active in high school in admits this could have been out liver her anxiety and it is possible that there is some sub conscious element to her anxiety given her change in lifestyle from living at home to being at school working etc.. She is going to try to see if she can be more active again. Again she does not like medications so that is why we have not opted for dicyclomine. TODAYS VISIT Pt has been lost to follow up since 2022 Her IBS was resolving and she was dong well....until she developed some sort of severe diarrhea infe tion. Presented to the [facility] ER where they did a CT scan and told her she had colitis. However on reviewing that CT scan there was absolutely no indication of any colitis just that there was diarrhea and the colon. I think they were confused between the fat stranding found with the ovarian cyst. They did not do any stool studies but she did have leukocytosis of 12,000. It is entirely likely that this was either bacterial or viral but since it is now resolving and her stooling has been soft it is likely fruit list to do any stool testing. She continues to have severe fecal urgency and is moving her bowels up to 5 times a day despite the fact that the bowels are soft to formed. Obviously this is problem for her. I think what we are going to do is treat her with Zithromax as this covered the most amount of bacterial pathogens since it is too late to do stool samples and will give her some dicyclomine to use to try to ease her bowels. It is also entirely possible she is just having postinfectious bowel irritability because of the IBS. If it is not resolving or worsens then certainly we can consider doing additional testing. Return office visit at next available appointment. [facility] Medical History Diarrhea Surgical History No pertinent past surgical history Family History Maternal Aunt Breast cancer Maternal Grandfather Leukemia Brother History of IBS Mother Diverticulosis GERD (gastroesophageal reflux disease) Social History Alcohol intake: never Patient Tobacco Use Status: Never used Tobacco Review of Systems Eyes Details: glasses Physical Exam Vital Signs: Last Vital Signs Pulse 72 05/15/24 14:09 BP 92/54 L 05/15/24 14:09 BMI result Body Mass Index 20.0 Results Reviewed Results Reviewed: CT abdomen and pelvis-[facility] ER RESULT: CT Abd/Pelvis W/ IV + Oral Contrast CT Abd/Pelvis W/ IV + Oral Contrast Hx of Present Illness: pt had abd pain yesterday and thought she was constipated so she took a laxative. Has had over 20 episodes of diarrhea since. Hx of ib. Had nausea yesterday. RLQ pain; Reason: Other:; Generalized Abdominal Pain r o Appendicitis; Clinical Question(s): Appendicitis TECHNIQUE: Spiral CT through the abdomen and pelvis with IV contrast formatted in 3 planes. 75 cc of Isovue 300 was administered intravenously. This study was performed with oral contrast. Weight-based protocol using automatic tube modulation was used to optimize exposure parameters. CTDIvol Body: 8.09 mGy, DLP Body: 397 mGy*cm. COMPARISON: Correlation with subsequently performed pelvic ultrasound 04/26/2024. FINDINGS: Clerk Funeral Detail View Findings, Lines and Tubes: None. Visualized Chest: Lung bases are clear. No pleural effusion. The heart is normal in size. No pericardial effusion. Diaphragm: Normal. Liver: Normal. Gallbladder: Normal. No CT evidence of gallbladder pathology. Bile ducts: No biliary ductal dilation. Spleen: Normal. Pancreas: Normal. Adrenal glands: Normal. Kidneys and ureters: No hydronephrosis, stones, or suspicious masses. Bladder: Within normal limits for completely collapsed state. Reproductive organs: There is a 7.6 x 6.5 cm pelvic cystic mass which abuts and appears to arise from the LEFT ovary, density measurement of 12-14 Hounsfield units. It is slightly thick-walled, especially along the inferior aspect. There is an adjacent smaller up to 2.0 cm cystic lesion adjacent to the LEFT lateral margin. Adjacent fat stranding and mild adjacent free fluid, some of which is slightly higher than simple fluid density. Normal uterus. Stomach, small bowel, and large bowel: Normal caliber. No bowel obstruction or bowel wall thickening. No surrounding inflammatory fat stranding. Fluid within the colon suggestive of diarrhea. Appendix: No evidence of acute appendicitis. Peritoneum and retroperitoneum: Minimal free pelvic fluid, some of the fluid measuring density slightly greater than that of simple fluid. No omental or mesenteric lesions. No free air. Lymph nodes: No enlarged lymph nodes. Blood vessels: Normal. No aneurysm. No evidence of venous thrombosis. Abdominal and pelvic wall: Unremarkable. Bones: No acute abnormality. IMPRESSION: 1. Pelvic cystic mass measuring up to 7.6 cm which appears to arise from the LEFT ovary with heterogeneous thick wall. Adjacent fat stranding and minimal free fluid. Differential diagnosis includes hemorrhagic cyst, tubo-ovarian abscess, less likely endometrioma. Ovarian torsion is also considered. Preliminary [facility] report recommended pelvic ultrasound, which has already been performed at the time of final dictation. The pelvic ultrasound demonstrated a probable hemorrhagic cyst. 2. Fluid throughout the colon suggestive of diarrhea. Questionable mild wall thickening of the sigmoid colon. Agree with salient findings of preliminary report provided by [facility]. WSN: [id number] Ordering Physician: Radha Flores 10https://[employer]/reports/mp_unified_driver?parameters=^MINE^,6850643.0,709854472.0,51263943.0,788562344.0,1121.0,%22MP_REACH%22,%22../../resources/UnifiedContent%22,%22mp_reach_v5%22,9# 04/25/24 20:17 -- -- Glucose Level ?114https://[employer]/reports/mp_unified_driver?parameters=^MINE^,9610187.0,975701859.0,03952777.0,293946307.0,1121.0,%22MP_REACH%22,%22../../resources/UnifiedContent%22,%22mp_reach_v5%22,9# 04/25/24 20:17 -- -- Platelet Count 286https://[employer]/reports/mp_unified_driver?parameters=^MINE^,1735513.0,576588254.0,22178172.0,636513854.0,1121.0,%22MP_REACH%22,%22../../resources/UnifiedContent%22,%22mp_reach_v5%22,9# 04/25/24 20:17 -- -- WBC ?12.9https://[employer]/reports/mp_unified_driver?parameters=^MINE^,6950228.0,354890220.0,40696324.0,716591852.0,1121.0,%22MP_REACH%22,%22../../resources/UnifiedContent%22,%22mp_reach_v5%22,9# 04/25/24 20:17 -- -- -HEMATOLOGY (26) WBC ?12.9https://[employer]/reports/mp_unified_driver?parameters=^MINE^,4390835.0,118985954.0,06325229.0,006070302.0,1121.0,%22MP_REACH%22,%22../../resources/UnifiedContent%22,%22mp_reach_v5%22,9# 04/25/24 20:17 -- -- RBC 4.91https://[employer]/reports/[employer]_unified_driver?parameters=^MINE^,7540002.0,784237738.0,38900396.0,728369672.0,1121.0,%22MP_REACH%22,%22../../resources/UnifiedContent%22,%22mp_reach_v5%22,9# 04/25/24 20:17 -- -- Hgb 14.4https://[employer]/reports/mp_unified_driver?parameters=^MINE^,6479730.0,579294172.0,49406409.0,757850120.0,1121.0,%22MP_REACH%22,%22../../resources/UnifiedContent%22,%22mp_reach_v5%22,9# 04/25/24 20:17 -- -- Hct 41.7https://[employer]/reports/mp_unified_driver?parameters=^MINE^,1096808.0,763311820.0,95543159.0,043108930.0,1121.0,%22MP_REACH%22,%22../../resources/UnifiedContent%22,%22mp_reach_v5%22,9# 04/25/24 20:17 -- -- MCV 84.9https://[employer]/reports/mp_unified_driver?parameters=^MINE^,1076071.0,599725929.0,66392272.0,724162038.0,1121.0,%22MP_REACH%22,%22../../resources/UnifiedContent%22,%22mp_reach_v5%22,9# 04/25/24 20:17 -- -- MCH 29.3https://[employer]/reports/mp_unified_driver?parameters=^MINE^,9240886.0,488558454.0,29108474.0,806555065.0,1121.0,%22MP_REACH%22,%22../../resources/UnifiedContent%22,%22mp_reach_v5%22,9# 04/25/24 20:17 -- -- MCHC 34.5https://[employer]/reports/[employer] Integrated Pathology_unified_driver?parameters=^MINE^,2706626.0,700550145.0,02437399.0,733410200.0,1121.0,%22MP_REACH%22,%22../../resources/UnifiedContent%22,%22mp_reach_v5%22,9# 04/25/24 20:17 -- -- Platelet Count 286https://[employer]/reports/[employer] Integrated Pathology_unified_driver?parameters=^MINE^,4708464.0,921880684.0,82829637.0,641012158.0,1121.0,%22MP_REACH%22,%22../../resources/UnifiedContent%22,%22mp_reach_v5%22,9# 04/25/24 20:17 -- -- RDW-SD 37.6https://[employer]/reports/[employer] Integrated Pathology_Summay_driver?parameters=^MINE^,5156870.0,949840181.0,21614621.0,212662216.0,1121.0,%22MP_REACH%22,%22../../resources/UnifiedContent%22,%22mp_reach_v5%22,9# 04/25/24 20:17 -- -- MPV 9.4https://[employer]/reports/[employer] Integrated Pathology_[place]_driver?parameters=^MINE^,2652602.0,393320672.0,99503011.0,357500197.0,1121.0,%22MP_REACH%22,%22../../resources/UnifiedContent%22,%22mp_reach_v5%22,9# 04/25/24 20:17 -- -- Nucleated RBC (Automated) 0.0https://[employer]/reports/[employer] Integrated Pathology_[place]_driver?parameters=^MINE^,7370153.0,909882726.0,77347696.0,971664288.0,1121.0,%22MP_REACH%22,%22../../resources/UnifiedContent%22,%22mp_reach_v5%22,9# 04/25/24 20:17 -- -- Abs. NRBC 0.0https://[employer]/reports/[employer] Integrated Pathology_[place]_driver?parameters=^MINE^,6103580.0,765671008.0,86271509.0,428788554.0,1121.0,%22MP_REACH%22,%22../../resources/UnifiedContent%22,%22mp_reach_v5%22,9# 04/25/24 20:17 -- -- Abs. Neut ?10.6https://[employer]/reports/[employer] Integrated Pathology_[place]_driver?parameters=^MINE^,8136000.0,992838897.0,53711447.0,664382082.0,1121.0,%22MP_REACH%22,%22../../resources/UnifiedContent%22,%22mp_reach_v5%22,9# 04/25/24 20:17 -- -- Abs. Lymph 1.1https://[employer]/reports/[employer] Integrated Pathology_[place]_driver?parameters=^MINE^,0453248.0,752280683.0,93226124.0,434756985.0,1121.0,%22MP_REACH%22,%22../../resources/UnifiedContent%22,%22mp_reach_v5%22,9# 04/25/24 20:17 -- -- Abs. Gilliam ?1.1https://[employer]/reports/[employer] Integrated Pathology_[place]_driver?parameters=^MINE^,8159781.0,811746322.0,43415624.0,610327280.0,1121.0,%22MP_REACH%22,%22../../resources/UnifiedContent%22,%22mp_reach_v5%22,9# 04/25/24 20:17 -- -- Abs. Eo 0.0https://[employer]/reports/[employer] Integrated Pathology_[place]_driver?parameters=^MINE^,3856606.0,409679955.0,03932114.0,329844490.0,1121.0,%22MP_REACH%22,%22../../resources/UnifiedContent%22,%22mp_reach_v5%22,9# 04/25/24 20:17 -- -- Abs. Baso 0.1https://[employer]/reports/[employer] Integrated Pathology_[place]_driver?parameters=^MINE^,2400250.0,991571035.0,55856451.0,245700617.0,1121.0,%22MP_REACH%22,%22../../resources/UnifiedContent%22,%22mp_reach_v5%22,9# 04/25/24 20:17 -- -- Neut % ?81.7https://[employer]/reports/[employer] Integrated Pathology_[place]_driver?parameters=^MINE^,8711941.0,198415178.0,31413881.0,020510927.0,1121.0,%22MP_REACH%22,%22../../resources/UnifiedContent%22,%22mp_reach_v5%22,9# 04/25/24 20:17 -- -- Lymph % ?8.7https://[employer]/reports/[employer] Integrated Pathology_[place]_driver?parameters=^MINE^,2800524.0,843982021.0,06284063.0,338830939.0,1121.0,%22MP_REACH%22,%22../../resources/UnifiedContent%22,%22mp_reach_v5%22,9# 04/25/24 20:17 -- -- Gilliam % 8.7https://[employer]/reports/[employer] Integrated Pathology_unified_driver?parameters=^MINE^,4171635.0,341547708.0,06445517.0,328706053.0,1121.0,%22MP_REACH%22,%22../../resources/UnifiedContent%22,%22mp_reach_v5%22,9# 04/25/24 20:17 -- -- Eos % 0.2https://[employer]/reports/mp_unified_driver?parameters=^MINE^,8720023.0,220370914.0,96149492.0,329247395.0,1121.0,%22MP_REACH%22,%22../../resources/UnifiedContent%22,%22mp_reach_v5%22,9# 04/25/24 20:17 -- -- Baso % 0.4https://[employer]/reports/mp_unified_driver?parameters=^MINE^,1566464.0,730300964.0,97720639.0,220957988.0,1121.0,%22MP_REACH%22,%22../../resources/UnifiedContent%22,%22mp_reach_v5%22,9# 04/25/24 20:17 -- -- Imm Gran 0.3https://[employer]/reports/mp_unified_driver?parameters=^MINE^,3085193.0,024114820.0,68301661.0,723978665.0,1121.0,%22MP_REACH%22,%22../../resources/UnifiedContent%22,%22mp_reach_v5%22,9# 04/25/24 20:17 -- -- Abs. Imm Gran 0.0https://[employer]/reports/mp_unified_driver?parameters=^MINE^,2603434.0,075471307.0,51348158.0,015453023.0,1121.0,%22MP_REACH%22,%22../../resources/UnifiedContent%22,%22mp_reach_v5%22,9# 04/25/24 20:17 -- -- Hold Lavender Top SPECIMEN DISCARDED AFTER 24 HOURS.https://[employer]/reports/mp_unified_driver?parameters=^MINE^,6678479.0,883927440.0,98860858.0,417203462.0,1121.0,%22MP_REACH%22,%22../../resources/UnifiedContent%22,%22mp_reach_v5%22,9# 04/26/24 09:14 -- -- Hold Blue Top SPECIMEN DISCARDED AFTER 4 HOURS.https://[employer]/reports/mp_unified_driver?parameters=^MINE^,7085556.0,194234097.0,85204935.0,164959608.0,1121.0,%22MP_REACH%22,%22../../resources/UnifiedContent%22,%22mp_reach_v5%22,9# 04/25/24 20:17 -- -- -CHEMISTRY (23) Sodium 134https://[employer]/reports/[employer] Integrated Pathology_[place]_driver?parameters=^MINE^,3947859.0,100213608.0,75354132.0,137889533.0,1121.0,%22MP_REACH%22,%22../../resources/UnifiedContent%22,%22mp_reach_v5%22,9# 04/25/24 20:17 -- -- Potassium ?3.5https://[employer]/reports/[employer] Integrated Pathology_unified_driver?parameters=^MINE^,8540299.0,470248468.0,38065266.0,988239784.0,1121.0,%22MP_REACH%22,%22../../resources/[employer]ifiedContent%22,%22mp_reach_v5%22,9# 04/25/24 20:17 -- -- Chloride 99https://[employer]/reports/mp_unified_driver?parameters=^MINE^,4920730.0,092898533.0,08808745.0,862875424.0,1121.0,%22MP_REACH%22,%22../../resources/[employer]ifiedContent%22,%22mp_reach_v5%22,9# 04/25/24 20:17 -- -- Bicarbonate Level 22https://[employer]/reports/mp_unified_driver?parameters=^MINE^,0961691.0,044310603.0,98404344.0,760482442.0,1121.0,%22MP_REACH%22,%22../../resources/UnifiedContent%22,%22mp_reach_v5%22,9# 04/25/24 20:17 -- -- Anion Gap 13https://[employer]/reports/mp_unified_driver?parameters=^MINE^,2780819.0,326111664.0,02764091.0,925371451.0,1121.0,%22MP_REACH%22,%22../../resources/[employer]ifiedContent%22,%22mp_reach_v5%22,9# 04/25/24 20:17 -- -- Glucose Level ?114https://[employer]/reports/mp_unified_driver?parameters=^MINE^,0402621.0,996154143.0,46807920.0,834073108.0,1121.0,%22MP_REACH%22,%22../../resources/UnifiedContent%22,%22mp_reach_v5%22,9# 04/25/24 20:17 -- -- BUN 10https://[employer]/reports/mp_unified_driver?parameters=^MINE^,7122503.0,058914159.0,61668378.0,946475557.0,1121.0,%22MP_REACH%22,%22../../resources/UnifiedContent%22,%22mp_reach_v5%22,9# 04/25/24 20:17 -- -- Creatinine-Blood 0.79https://[employer]/reports/[facility] Path[facility]_[place]_driver?parameters=^MINE^,3780379.0,333035753.0,78174711.0,721138026.0,1121.0,%22MP_REACH%22,%22../../resources/UnifiedContent%22,%22mp_reach_v5%22,9# 04/25/24 20:17 -- -- Estimated GFR Creatinine *106https://[employer]/reports/[facility] Integrated Pathology_[place]_driver?parameters=^MINE^,2933343.0,410897905.0,52595545.0,341920454.0,1121.0,%22MP_REACH%22,%22../../resources/UnifiedContent%22,%22mp_reach_v5%22,9# 04/25/24 20:17 -- -- Calcium 9.3https://[employer]/reports/[facility] Integrated Pathology_[place]_driver?parameters=^MINE^,8142232.0,828636728.0,27381449.0,734789601.0,1121.0,%22MP_REACH%22,%22../../resources/UnifiedContent%22,%22mp_reach_v5%22,9# 04/25/24 20:17 -- -- Magnesium 1.9https://[employer]/reports/[facility] Integrated Pathology_[place]_driver?parameters=^MINE^,6727771.0,647058712.0,64312086.0,912238407.0,1121.0,%22MP_REACH%22,%22../../resources/UnifiedContent%22,%22mp_reach_v5%22,9# 04/25/24 20:17 -- -- Protein, Total ?8.3https://[employer]/reports/[facility] Integrated Pathology_[place]_driver?parameters=^MINE^,0869216.0,819995296.0,86538436.0,531886726.0,1121.0,%22MP_REACH%22,%22../../resources/UnifiedContent%22,%22mp_reach_v5%22,9# 04/25/24 20:17 -- -- Albumin 4.4https://[employer]/reports/[facility] Integrated Pathology_[place]_driver?parameters=^MINE^,6200864.0,696314256.0,19673949.0,805333847.0,1121.0,%22MP_REACH%22,%22../../resources/UnifiedContent%22,%22mp_reach_v5%22,9# 04/25/24 20:17 -- -- AG Ratio 1.1https://[employer]/reports/[facility] Integrated Pathology_[place]_driver?parameters=^MINE^,0175956.0,391316742.0,83628329.0,459418297.0,1121.0,%22MP_REACH%22,%22../../resources/UnifiedContent%22,%22mp_reach_v5%22,9# 04/25/24 20:17 -- -- Alkaline Phosphatase 57https://[employer]/reports/[facility] Integrated Pathology_[place]_driver?parameters=^MINE^,5939115.0,284547205.0,34415004.0,133171545.0,1121.0,%22MP_REACH%22,%22../../resources/UnifiedContent%22,%22mp_reach_v5%22,9# 04/25/24 20:17 -- -- Lipase 22https://[employer]/reports/mp_[place]_driver?parameters=^MINE^,0332699.0,897810479.0,92811176.0,214550821.0,1121.0,%22MP_REACH%22,%22../../resources/UnifiedContent%22,%22mp_reach_v5%22,9# 04/25/24 20:17 -- -- AST (SGOT) 15https://[employer]/reports/[facility] Integrated Pathology_[place]_driver?parameters=^MINE^,4423725.0,205550636.0,05968991.0,491988414.0,1121.0,%22MP_REACH%22,%22../../resources/UnifiedContent%22,%22mp_reach_v5%22,9# 04/25/24 20:17 -- -- ALT (SGPT) 12https://[employer]/reports/[facility] Integrated Pathology_unified_driver?parameters=^MINE^,5111908.0,827152042.0,53175422.0,572435151.0,1121.0,%22MP_REACH%22,%22../../resources/UnifiedContent%22,%22mp_reach_v5%22,9# 04/25/24 20:17 -- -- Bilirubin, Total ?1.4https://[employer]/reports/[facility] Integrated Pathology_unified_driver?parameters=^MINE^,8889082.0,588153349.0,32508698.0,376072153.0,1121.0,%22MP_REACH%22,%22../../resources/UnifiedContent%22,%22mp_reach_v5%22,9# 04/25/24 20:17 -- -- Lactate 1.1https://[employer]/reports/[facility] Integrated Pathology_[place]_driver?parameters=^MINE^,9854247.0,198152255.0,19996385.0,320224823.0,1121.0,%22MP_REACH%22,%22../../resources/UnifiedContent%22,%22mp_reach_v5%22,9# 04/25/24 20:17 -- -- Beta HCG-serum, Qual NEGATIVEhttps://[employer]/reports/[facility] Pathology_[place]_driver?parameters=^MINE^,5243825.0,726524380.0,44517172.0,726480343.0,1121.0,%22MP_REACH%22,%22../../resources/[employer]%22,%22mp_reach_v5%22,9# 04/25/24 20:17 -- -- Hold Green Top SPECIMEN DISCARDED AFTER 1 WEEKhttps://[employer]/reports/[facility] Integrated Pathology_[place]_driver?parameters=^MINE^,7108851.0,608447467.0,55798477.0,378720400.0,1121.0,%22MP_REACH%22,%22../../resources/UnifiedContent%22,%22mp_reach_v5%22,9# 04/25/24 20:17 -- -- Hold Green Top 2 SPECIMEN DISCARDED AFTER 1 WEEKhttps://[employer]/reports/[facility] Integrated Pathology_[place]_driver?parameters=^MINE^,2809188.0,753090779.0,71473742.0,360465184.0,1121.0,%22MP_REACH%22,%22../../resources/UnifiedContent%22,%22mp_reach_v5%22,9# 04/25/24 20:17 Assessment & Plan Assessment & Plan (1) Irritable bowel syndrome with diarrhea: Comment: NEGATIVE RAST FOR FOOD ALLERGIES, NEGATIVE CELIAC WORKUP, NEGATIVE CRP Code(s): K58.0 - Irritable bowel syndrome with diarrhea Category: Medical (2) Enteritis: Code(s): K52.9 - Noninfective gastroenteritis and colitis, unspecified Category: Medical (3) Total bilirubin, elevated: Code(s): R17 - Unspecified jaundice Category: Medical Plan Pt has been lost to follow up since 2022 Her IBS was resolving and she was dong well....until she developed some sort of severe diarrhea infe tion. Presented to the [facility] ER where they did a CT scan and told her she had colitis. However on reviewing that CT scan there was absolutely no indication of any colitis just that there was diarrhea and the colon. I think they were confused between the fat stranding found with the ovarian cyst. They did not do any stool studies but she did have leukocytosis of 12,000. It is entirely likely that this was either bacterial or viral but since it is now resolving and her stooling has been soft it is likely fruit list to do any stool testing. She continues to have severe fecal urgency and is moving her bowels up to 5 times a day despite the fact that the bowels are soft to formed. Obviously this is problem for her. I think what we are going to do is treat her with Zithromax as this covered the most amount of bacterial pathogens since it is too late to do stool samples and will give her some dicyclomine to use to try to ease her bowels. It is also entirely possible she is just having postinfectious bowel irritability because of the IBS. If it is not resolving or worsens then certainly we can consider doing additional testing. Return office visit at next available appointment. Orders: Orders Bilirubin Total Today R17 - Unspecified jaundice Complete Blood Count Auto Diff Today R17 - Unspecified jaundice Bilirubin Direct Today R17 - Unspecified jaundice Medications: New dicyclomine 20 mg PO QID 120 tabs 3RF 30 days K58.0 - Irritable bowel syndrome with diarrhea azithromycin (Zithromax Z-Hari) For 250 mg dose pack: take 500 mg today (day 1), then 250 mg for 4 days (days 2-5) PO 6 tabs 0RF K52.9 - Noninfective gastroenteritis and colitis, unspecified Coding Level of Care Code Est Pt Level 4 (82859) Diagnoses Irritable bowel syndrome with diarrhea K58.0 Enteritis K52.9 Total bilirubin, elevated R17 Time Spent (min) 32
--- OUTSIDE RECORDS SUMMARY | 2024-05-15 15:27 | XMS_ITS | Continuity of Care Document ---
Author Organization [facility] ter Address [address] [place] [id number]- Care Team Providers Care Nail Professional Name Role Phone Alix PRE K LEAD TEACHER, Nel [place] Primary Care Physician [phone] Encounter [facility] Date(s): 04/26/24 - 04/26/[address] [address] Discharge Disposition: A-D/C Home Attending Physician: Manjeet Ovalle MD Admitting Physician: Manjeet Ovalle MD Referring Physician: Manjeet Ovalle MD Encounter Type: Disch IP Allergies, Adverse Reactions, Alerts No Known Allergies Immunizations Given and Recorded Vaccine Date Status Refusal Reason SARS-CoV-2 (COVID-19) mRNA-1273 vaccine 05/10/21 R ecorded tetanus/diphtheria/pertussis, acel(Tdap) 1 01/30/21 Given tetanus/diphtheria/pertussis, acel(Tdap) 04/04/11 Recorded SARS-CoV-2 (COVID-19) mRNA BNT-162b2 vac 10/03/20 Recorded SARS-CoV-2 (COVID-19) mRNA BNT-162b2 vac 09/11/20 Recorded influenza virus vaccine, inactivated 01/13/20 Denzel rded influenza virus vaccine, inactivated 02/15/19 Denzel rded influenza virus vaccine, inactivated 03/08/18 Denzel rded Hepatitis A Pediatric Vaccine 11/08/17 Recorded Hepatitis A Pediatric Vaccine 05/09/17 Recorded Meningococcal Conjugate Vaccine 06/17/15 Recorded Meningococcal Conjugate Vaccine 2 04/04/11 Recorde d Human Papillomavirus Vaccine 10/04/11 Recorded Human Papillomavirus Vaccine 06/04/11 Recorded Human Papillomavirus Vaccine 04/04/11 Recorded Varicella Virus Vaccine 03/20/07 Recorded Varicella Virus Vaccine 03/28/00 Recorded Poliovirus Vaccine, Inactivated 03/05/04 Recorded Poliovirus Vaccine, Inactivated 99 Recorded Poliovirus Vaccine, Inactivated 99 Recorded Poliovirus Vaccine, Inactivated 99 Recorded Measles/Mumps/Rubella Virus Vaccine 03/09/03 Recor ded Measles/Mumps/Rubella Virus Vaccine 03/28/00 Recor ded hepatitis B pediatric vaccine 3 03/28/00 Recorded hepatitis B pediatric vaccine 4 99 Recorded hepatitis B pediatric vaccine 5 99 Recorded 1Result Comment: [facility]: [id number] 2Result Comment: [facility] 3Result Comment: [facility] 4Result Comment: [facility] 5Result Comment: [facility] Medications ibuprofen 600 mg oral tablet 600 mg, 1, tablet, By Mouth, 4 times a day, PRN, for 14 days, # 30 tablet, Refills 0, Tot. Refills 0, Acute 05/10/24 10:19:00 AM EST, for pain, 04/26/24 10:19:00 AM EST, Route to Pharmacy Electronically, [facility]/pharmacy #[id number], Partial fill upon patient request if the prescription is for a schedule II opioid drug., 170, cm, 04/25/24 23:26:00 EST, Height, 59.3, kg, 04/25/24 23:26:00 EST, Dry Weight Start Date: 04/26/24 Stop Date: 05/10/24 Status: Ordered Quantity: 30.0 Unit: tablet Repeat number: 1 ondansetron 4 mg oral tablet, disintegrating = 4 mg, By Mouth, Every 6 hours, PRN Nausea & Vomiting, for 3 days, # 5 tablet, 0 Refills, Acute 04/29/24 10:18:00 AM EST, 04/26/24 10:18:00 AM EST, Tablet, [facility]acy #[id number], Partial fill upon patient request if the prescription is for a schedule II opioid drug., 170, cm, 04/25/24 23:26:00 EST, Height, 59.3, kg, 04/25/24 23:26:00 EST, Dry Weight Start Date: 04/26/24 Stop Date: 04/29/24 Status: Ordered Quantity: 5.0 Unit: tablet Repeat number: 1 Tylenol 325 mg oral tablet 975 mg, By Mouth, Every 6 hours, PRN, for 14 days, # 30 tablet, Refills 0, Tot. Refills 0, Acute 05/10/24 10:18:00 AM EST, Pain , Moderate, 04/26/24 10:18:00 AM EST, Route to Pharmacy Electronically,[facility]/pharmacy #[id number], Partial fill upon patient request if the prescription is for a schedule II opioid drug., 170, cm, 04/25/24 23:26:00 EST, Height, 59.3, kg, 04/25/24 23:26:00 EST, Dry Weight Start Date: 04/26/24 Stop Date: 05/10/24 Status: Ordered Quantity: 30.0 Unit: tablet Repeat number: 1 Problem List Condition Confirmation Course Effective Dates Status Health St atus Informant Low blood pressure, not hypotension Confirmed Active Hx of scoliosis Confirmed Active IBS (irritable colon syndrome) Confirmed Active Annual physical exam Confirmed Active Results Radiology Reports * Exam Date Time Procedure Performing Provider Status 04/26/24 3:33 AM US Pelvic Transvaginal Taylor Calzada; Auth (Verified) Notes: (US Pelvic Transvaginal) Reason For Exam: ?TOA;Pain RESULT: US Pelvic Transvaginal US Pelvic Transabdominal, US Pelvic Doppler Comp, US Pelvic Transvaginal Reason: Pain; Clinical Question(s): TOA; Order Comment: US Pelvic Non-Ob Comp Prep COMPARISON: CT abdomen/pelvis 04/25/2024 TECHNIQUE: Transabdominal and transvaginal pelvic ultrasound with grayscale, color Doppler, and spectral Doppler analysis. FINDINGS: UTERUS: Size: 8.1 x 3.3 x 5.6 cm, volume 76.9 cc. Endometrial thickness: 0.6 cm. Morphology: Normal configuration and echotexture. Nabothian cysts present. RIGHT OVARY: Size: 3.8 x 1.6 x 1.5 cm, volume 4.6 cc. Morphology: Normal echotexture. No pathologic cysts or mass. Normal arterial and venous waveforms. LEFT OVARY: Size: 7.9 x 6.8 x 7.3 cm, volume 203.3 cc. Morphology: Normal echotexture. No pathologic cysts or mass. Normal arterial and venous waveforms. There is a large cystic lesion with lacelike reticular echoes measuring 7.2 x 6.0 x 6.5 cm. This is consistent with a large hemorrhagic cyst and corresponds to the LEFT adnexal lesion seen on enhancedCT abdomen/pelvis 04/25/2024 which exhibited an attenuation of 14 Hounsfield units. ADNEXA: Trace free fluid in the cul-de-sac, likely physiologic. IMPRESSION: Left ovarian lesion with low level echoes measuring up to 7.2 cm consistent with a large hemorrhagic cyst. Given the size, a repeat pelvic ultrasound is recommended in 6-12 weeks. No evidence of ovarian torsion. Unremarkable uterus. Trace free fluid probably physiologic. An actionable message ([facility]) has been communicated via the [employer] system on 04/26/2024 7:08 AM, Message ID [id number]. I have personally reviewed the images and I agree with this report. WSN: [id number] Ordering Physician: Kamryn Johnson Dictated By: Angelita Ellison DO Dictated Date/Time: 04/26/24 7:08 am Reviewed By: Prashanth Landrum MD Signed By: Prashanth Landrum MD Signed Date/Time: 04/26/24 7:13 am Transcribed By: GAYATRI Transcribed Date/Time: 04/26/24 4:01 am * Exam Date Time Procedure Performing Provider Status 04/26/24 3:33 AM US Pelvic Doppler Comp Taylor Calzada; Auth (Verified) Notes: (US Pelvic Doppler Comp) Reason For Exam: Pain RESULT: US Pelvic Doppler Comp US Pelvic Transabdominal, US Pelvic Doppler Comp, US Pelvic Transvaginal Reason: Pain; Clinical Question(s): TOA; Order Comment: US Pelvic Non-Ob Comp Prep COMPARISON: CT abdomen/pelvis 04/25/2024 TECHNIQUE: Transabdominal and transvaginal pelvic ultrasound with grayscale, color Doppler, and spectral Doppler analysis. FINDINGS: UTERUS: Size: 8.1 x 3.3 x 5.6 cm, volume 76.9 cc. Endometrial thickness: 0.6 cm. Morphology: Normal configuration and echotexture. Nabothian cysts present. RIGHT OVARY: Size: 3.8 x 1.6 x 1.5 cm, volume 4.6 cc. Morphology: Normal echotexture. No pathologic cysts or mass. Normal arterial and venous waveforms. LEFT OVARY: Size: 7.9 x 6.8 x 7.3 cm, volume 203.3 cc. Morphology: Normal echotexture. No pathologic cysts or mass. Normal arterial and venous waveforms. There is a large cystic lesion with lacelike reticular echoes measuring 7.2 x 6.0 x 6.5 cm. This is consistent with a large hemorrhagic cyst and corresponds to the LEFT adnexal lesion seen on enhancedCT abdomen/pelvis 04/25/2024 which exhibited an attenuation of 14 Hounsfield units. ADNEXA: Trace free fluid in the cul-de-sac, likely physiologic. IMPRESSION: Left ovarian lesion with low level echoes measuring up to 7.2 cm consistent with a large hemorrhagic cyst. Given the size, a repeat pelvic ultrasound is recommended in 6-12 weeks. No evidence of ovarian torsion. Unremarkable uterus. Trace free fluid probably physiologic. An actionable message ([facility]) has been communicated via the [employer] system on 04/26/2024 7:08 AM, Message ID [id number]. I have personally reviewed the images and I agree with this report. WSN: [id number] Ordering Physician: Kamryn Johnson Dictated By: Angelita Ellison DO Dictated Date/Time: 04/26/24 7:08 am Reviewed By: Prashanth Landrum MD Signed By: Prashanth Landrum MD Signed Date/Time: 04/26/24 7:13 am Transcribed By: GAYATRI Transcribed Date/Time: 04/26/24 4:01 am * Exam Date Time Procedure Performing Provider Status 04/26/24 3:33 AM US Pelvic Transabdominal Yesika Calzada; Auth (Verified) Notes: (US Pelvic Transabdominal) Reason For Exam: Pain RESULT: US Pelvic Transabdominal US Pelvic Transabdominal, US Pelvic Doppler Comp, US Pelvic Transvaginal Reason: Pain; Clinical Question(s): TOA; Order Comment: US Pelvic Non-Ob Comp Prep COMPARISON: CT abdomen/pelvis 04/25/2024 TECHNIQUE: Transabdominal and transvaginal pelvic ultrasound with grayscale, color Doppler, and spectral Doppler analysis. FINDINGS: UTERUS: Size: 8.1 x 3.3 x 5.6 cm, volume 76.9 cc. Endometrial thickness: 0.6 cm. Morphology: Normal configuration and echotexture. Nabothian cysts present. RIGHT OVARY: Size: 3.8 x 1.6 x 1.5 cm, volume 4.6 cc. Morphology: Normal echotexture. No pathologic cysts or mass. Normal arterial and venous waveforms. LEFT OVARY: Size: 7.9 x 6.8 x 7.3 cm, volume 203.3 cc. Morphology: Normal echotexture. No pathologic cysts or mass. Normal arterial and venous waveforms. There is a large cystic lesion with lacelike reticular echoes measuring 7.2 x 6.0 x 6.5 cm. This is consistent with a large hemorrhagic cyst and corresponds to the LEFT adnexal lesion seen on enhancedCT abdomen/pelvis 04/25/2024 which exhibited an attenuation of 14 Hounsfield units. ADNEXA: Trace free fluid in the cul-de-sac, likely physiologic. IMPRESSION: Left ovarian lesion with low level echoes measuring up to 7.2 cm consistent with a large hemorrhagic cyst. Given the size, a repeat pelvic ultrasound is recommended in 6-12 weeks. No evidence of ovarian torsion. Unremarkable uterus. Trace free fluid probably physiologic. An actionable message ([facility]) has been communicated via the [employer] system on 04/26/2024 7:08 AM, Message ID [id number]. I have personally reviewed the images and I agree with this report. WSN: [id number] Ordering Physician: Kamryn Johnson Dictated By: Angelita Ellison DO Dictated Date/Time: 04/26/24 7:08 am Reviewed By: Prashanth Landrum MD Signed By: Prashanth Landrum MD Signed Date/Time: 04/26/24 7:13 am Transcribed By: GAYATRI Transcribed Date/Time: 04/26/24 4:01 am Vital Signs Most recent to oldest [Reference Range]: 1 2 Oxygen Saturation [94-100 %] 98 % (04/26/24 8:49 AM) 99 % (04/26/24 1:42 AM) Pulse Rate [55-90 bpm] 104 bpm *H* (04/26/24 8:49 AM) 110 bpm *H* (04/26/24 1:42 AM) Blood Pressure [90-138/55-84 mm Hg] 107/ 69mm Hg (04/26/24 8:49 AM) 114/71mm Hg (04/26/24 1:42 AM) Respiratory Rate [16-30 br/min] 17 br/mi n (04/26/24 8:49 AM) 18 br/min (04/26/24 1:42 AM) Temperature [96.8-100.4 DegF] 98.0 DegF (04/26/24 8:49 AM) 98.9 DegF (04/26/24 1:42 AM) Mode of Delivery (Oxygen) Room air (04/26/24 8:49 AM) Room air (04/26/24 1:42 AM) Blood pressure sites Arm, right (04/26/24 8:49 AM) Arm, right (04/26/24 1:42 AM) Temperature Route Oral (04/26/24 8:49 AM) Oral (04/26/24 1:42 AM) Social History Social History Type Response Smoking Status Never smoker; Tobacc o user in household: No entered on: 03/01/17 Sex Sex Representation Female (finding) History and physical note * Kamryn Johnson MD: PERFORM Event Display: History and Physical Hospital Authored Date: [id number] Patient: ??WILLIAM RUIZ ? Age:??24 Years?Sex:??Female?:??2000?? Chief Complaint transfer from [place] ?TOA History of Present Illness William is a 24yo G0 who was transferred from [place] for suspected tubo-ovarian abscess. She presented 04/25 with diarrhea and fever at home starting at 1800. She requested a CT scan for concern of appendicitis. CT did not show appendicitis, did show 7.6 x 6.8 cm likely adnexal hypodense lesion within the mid pelvis which appears to abut the left ovary. She was transferred for further managementand work up of suspected TOA. Labs performed in the ED showed mild leukocytosis.? On my evaluation, she is well appearing. reports that her diarrhea has slowed down but that she had diarrhea 25 times today and has abdominal cramping. She endorses some nausea and vomiting x2 today. She is overall feeling much better now and without acute complaints, ?? She denies anything inside the vagina, no abnormal vaginal discharge. No dysuria.??No fever or chills. ?? PMH: IBS-D PSH:??none Obgyn: hx normal pap, last 01/[address] Cabello. No hx??STI. G0, never sexually active. LMP 04/07, regular menses Review of Systems negative except as noted in HPI Physical Exam Vitals & Measurements T:??98.9?F?? HR:??110??(Peripheral)?? RR:??18?? BP:??114/71?? SpO2:??99%?? General: pleasant, alert, cooperative, NAD Abdominal: Soft, mildly tender in suprapubic area, non-distended. No masses or??organomegaly appreciated. No guarding or rebound. Machine Shop Apprentice: Speculum: Normal appearing perineum, vulva, urethral meatus, vaginal and cervical mucosa, no lesions appreciated, nulliparous-appearing cervix, small amount??of dark green/brown vaginal??discharge in??posterior fornix.??Aptima collected.??no CMT.?? Bimanual: small, anteverted and mobile uterus. No adnexal fullness or tenderness. Extremities: Symmetrical muscle bulk, no visible erythema or edema.?? Psych: Mood and affect stable, appearance appropriate, good eye contact, talkative Assessment/Plan Assessment:??24yo G0 presenting as a transfer from [place] for concern of TOA vs ovarian torsion. Patient is afebrile, mildly tachycardic (likely in the setting of dehydration) and hemodynamically stable, well appearing, and with mild leukocytosis. Her pelvic exam is significant for a small amount ofdark green/brown discharge but no CMT or adnexal tenderness/masses/fullness. She has a history of IBS-D and her diarrhea and acute clinical picture are likely related to this diagnosis. CT scan in addition to 7cm adnexal mass also revealed signs of colitis and fat stranding. Ultrasound ordered for better characterization of adnexal findings. Clinical suspicion low for tubo-ovarian abscess, however, cannot rule out based on current imaging. If tubo-ovarian abscess??confirmed via ultrasound and above >5cm, would plan??for??IR??consultation. Also possibly is abscess arising from colon in the setting of her IBS. If this is the case, would consider GI consultation or transfer to medicine vs surgery service. Very low suspicion for torsion given pain presentation but doppler ultrasound ordered to rule this out. Empiric antibiotic treatment of TOA started including IV ceftriaxone, doxycycline, and metronidazole.? Will await USN result to determine further management and consideration of IR drainage. ?? Discussed with Dr. Rodriguez, attending physician ? Adnexal mass (N94.89):? TOA on CT (p) USN (p) Aptima cef/doxy/flagyl tylenol??prn for??pain zofran prn for??nausea PO hydration regular diet consider IR in AM for drainage ( ) ?? OB History History?(0,0,0,0)?No previous pregnancies history have been recorded Active Problem List Active Problem List Annual physical exam: (Medical) Hx of scoliosis: (Medical) IBS (irritable colon syndrome): (Medical) Low blood pressure, not hypotension: (Medical) Procedure/Surgical History Entire wisdom tooth Home Medications No qualifying data available. Allergies NKA Social History Alcohol Use: Never. Electronic Cigarette/Vaping Electronic Cigarette Use: Never. Employment/School Status: Employed. 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 Exercise Regular exercise: Yes. Exercise type: Walking. Home/Environment Living situation: Home/Independent. Lives with: Father, Mother. Nutrition/Health Diet: Regular. Caffeine intake amount: low. Sexual Sexually involved in last 6 months: No. Ever been sexually involved? No. Substance Abuse Use: Never. Tobacco Never smoker, Tobacco user in household: No. Family History Mother: CKD - chronic kidney disease Pat. Grandfather (): Congestive heart failure Other (great aunt): Cancer of breast * Kathi Rodirguez DO: PERFORM Event Display: History and Physical Hospital Authored Date: [id number] Late Entry: Attending Attestation:??I have seen and evaluated this patient. ??I have discussed the case and itsmanagement with?Elizabeth??and agree with the findings and plan as documented above in the resident???s note. 24yo G0 presenting as a transfer from [place] for concern of TOA vs ovarian torsion. Patient vitals notable for tachycardia secondary to dehydration from gastritis and otherwise hemodynamically stable with mild leukocytosis. Discussed while waiting for ultrasound for further work up,??per concern for transferring team for TOA vs??abscess secondary to colitis,??will start IV antibiotic treatment for suspected TOA to avoiddelay in treatment. With any acute change in pain or stability would reassess concern for torsion or needing to proceedto OR for management. Will continue to monitor closely. Hospital Progress note * Hussein MUÑOZ, Julia Gregory: PERFORM, SIGN, VERIFY Event Display: Progress Note Hospital Authored Date: [id number] Patient: WILLIAM RUIZ Age: 24 years Sex: Female : 2000 Associated Diagnoses: None Author: Hussein MUÑOZ, Julia Gregory Findings Problem Related to Alteration in Comfort : Alteration in Comfort/new 04/26/2024 4:00 EST Alteration in Comfort Related to Disease process Goals & Outcomes: Comfort Pt will report acceptable level of comfort & pain control, Resolved problem, Goals/Outcomes met Interventions Implemented: Comfort Assess pain using appropriate pain scale/tools Goals/Interventions, Comfort Yes Comfort, Problem Start 04/26/2024 6:09 Reviewed plan with, Comfort Patient Patient Progression, Comfort Pt progressing according to plan Comfort, Problem Ongoing Yes . Evaluation Patient arrived to the hospital and was assisted to bed via nursing staff .[facility] team notified patient arrived and stat ultrasound was ordered. Patient is alert and oriented she follows all commands, she is ambulatory in the room. Patient denies persistent pain. Lung sounds are clear, abdomen is flatnon tender. Patient has pelvic exam done in the room and then she went down for her ultrasound. Shereturned and was started on her abx. Patient voided in the BR and complained of significant amount of bleeding . [facility] team made aware. Patient is in bed father at bedside.Please see isaac and reta for more details.. Note * Cheryl Coles RN: PERFORM Event Display: Discharge/Transfer Note Hospital Authored Date: Nursing Discharge Note Entered On: 04/26/2024 11:02 EST Performed On: 04/26/2024 11:02 EST by Cheryl Coles RN Nursing Discharge Note 2 Discharge Time : 04/26/2024 11:00 EST Discharge Level of Care at Discharge : Home/[facility] Patient Left Unit Via : Ambulatory Patient Accompanied Off Unit with : Responsible adult DC Instructions Provided & Signed by Pt : Yes Patient Understands D/C Instructions : Yes Patient Instructions Discharge Signed : Yes Did Pt have Specialty Bed or Wound Vac : No Cheryl Coles RN - 04/26/2024 11:02 EST * Robyn Ramsey MD: PERFORM, MODIFY Event Display: Discharge/Transfer Note Hospital Authored Date: Patient: ??WILLIAM RUIZ ? Age:??24 Years?Sex:??Female?:??2000?? Admit Date Admission Date: 04/26/2024 Discharge Date 04/26/2024 Discharge Diagnoses Adnexal mass, 04/26/2024 Diarrhea, 04/26/2024 Hemorrhagic cyst of left ovary, 04/26/2024 [facility] Course William is a 24yo G0 who initially presented??as a transfer from [place] for concern of TOA vs ovariantorsion. Patient initially presented to the [place]??ED with nausea, diarrhea, abdominal pain, and fever.??She had a CT abdomen/pelvis??per her request??due??to??concern??for??possible appendicitis, and was??incidentally found to??have a??left-sided??7cm adnexal??mass, which??was concerning??for??possible??tuboovarian abscess (TOA). CT scan also revealed signs of colitis and fat stranding, which was??consistent with??her diarrhea. ?? Patient??did also have a??mild??leukocytosis, but was afebrile. Upon transfer to [facility], her pelvic exam was significant for a small amount of dark green/brown discharge but no CMT or adnexal tenderness/masses/fullness. She has a history of IBS-D and her diarrhea and acute clinical picture are likely related to this diagnosis. Empiric antibiotic treatment of TOA was started inclu ding IV ceftriaxone, doxycycline, and metronidazole.? Patient then underwent a pelvic ultrasound, which revealed a 7cm simple- appearing left-sided hemorrhagic cyst. Patient was counseled on these findings. On hospital day 1, patient's symptoms had overall improved. She remained afebrile and her abdominal exam was benign. Her diarrhea had improved and she was tolerating PO intake without any emesis. She was counseled on return precautions and cleared for discharge to home with plan for outpatient follow-up of ovarian cyst. Objective/Physical Exam on Day of Discharge Vitals & Measurements T:??98.0?F?? HR:??104??(Peripheral)?? RR:??17?? BP:??107/69?? SpO2:??98%?? Constitutional:??Patient sitting upright in no acute distress. Awake, alert, interactive. Non-toxicappearing. Respiratory:??Normal work of breathing. Breathing comfortably on room air. Cardiovascular:??No signs of fluid overload. Abdomen/GI:??Soft, non-distended, mildly tender to palpation. No rebound or guarding. Extremities:??No calf asymmetry??or edema. Skin:??No rash or jaundice. Neurological/Psychiatric:??Mood and affect congruent and stable. Assessment/Plan Assessment:??William is a 24yo G0 who initially presented to[facility] with diarrhea, abdominal pain, and fever. She had a CT scan which showed an incidental finding of a left-sided adnexal mass concerning for possible tubo- ovarian abscess (TOA). Patient was started on empiric antibiotic treatment, then had a pelvic ultrasound which demonstrated a left-sided 7cm hemorrhagic ovarian cyst. No??evidenceof torsion. Patient was counseled on this ultrasound??finding, likely physiologic in etiology. No indication for antibiotic treatment. No??indication for surgical intervention. Patient counseled on return precautions and cleared for discharge to home. ?? Hemorrhagic cyst of left ovary (N83.202):? 04/26 pelvic ultrasound:?? -- Left ovarian lesion with low level echoes measuring up to 7.2 cm consistent with a large hemorrhagic cyst. Given the size, a repeat pelvic ultrasound is recommended in 6-12 weeks. No evidence of ovarian torsion. ?? Adnexal mass (N94.89):? - Initial concern for tuboovarian abscess, patient is now s/p ceftriaxone, metronidazole, and doxycycline x1 dose -??Patient denies ever being sexually active - Patient found to have a left-sided 7cm hemorrhagic cyst - Discussed etiology, pathophysiology,??and??recommended management for hemorrhagic cysts. No indication for surgical intervention at this time. - Encourage PO hydration - Return to hospital with any??severe abdominal pain, lightheadedness, syncope, or inability to drink fluids for 24 hours - Follow-up with [facility] for outpatient?? management: Recommend repeat??imaging of??ovarian cyst??in 6-12 weeks. ?? Diarrhea (R19.7):? - Suspect viral gastrointestinal illness - Symptomatic management ?? Discussed with Dr. Rodriguez, attending. Robyn Ramsey MD OBGYN PGY2 Discharge Medications ???Acetaminophen (Tylenol 325 mg oral tablet)???Ibuprofen (ibuprofen 600 mg oral tablet)???Ondansetron (ondansetron 4 mg oral tablet, disintegrating) Immunizations during Hospitalization Vaccine Date Status SARS-CoV-2 (COVID-19) mRNA-1273 vaccine 05/10/2021 Recorded tetanus/diphtheria/pertussis, acel(Tdap) 01/30/2021 Given Comments : [facility]: [id number] SARS-CoV-2 (COVID-19) mRNA BNT-162b2 vac 10/03/2020 Recorded SARS-CoV-2 (COVID-19) mRNA BNT-162b2 vac 09/11/2020 Recorded influenza virus vaccine, inactivated 01/13/2020 Recorded influenza virus vaccine, inactivated 02/15/2019 Recorded influenza virus vaccine, inactivated 03/08/2018 Recorded Hepatitis A Pediatric Vaccine 11/08/2017 Recorded Hepatitis A Pediatric Vaccine 05/09/2017 Recorded Meningococcal Conjugate Vaccine 06/17/2015 Recorded Human Papillomavirus Vaccine 10/04/2011 Recorded Human Papillomavirus Vaccine 06/04/2011 Recorded Meningococcal Conjugate Vaccine 04/04/2011 Recorded Comments : [facility] tetanus/diphtheria/pertussis, acel(Tdap) 04/04/2011 Recorded Human Papillomavirus Vaccine 04/04/2011 Recorded Varicella Virus Vaccine 03/20/2007 Recorded Poliovirus Vaccine, Inactivated 03/05/2004 Recorded Measles/Mumps/Rubella Virus Vaccine 03/09/2003 Recorded hepatitis B pediatric vaccine 03/28/2000 Recorded Comments : [facility] Varicella Virus Vaccine 03/28/2000 Recorded Measles/Mumps/Rubella Virus Vaccine 03/28/2000 Recorded hepatitis B pediatric vaccine 1999 Recorded Comments : [facility] hepatitis B pediatric vaccine 1999 Recorded Comments : [facility] Poliovirus Vaccine, Inactivated 1999 Recorded Poliovirus Vaccine, Inactivated 1999 Recorded Poliovirus Vaccine, Inactivated 1999 Recorded Lab Results Test Name Test Result Date/Time WBC 12.9 k/mm3 04/25/2024 20:17 EST RBC 4.91 m/mm3 04/25/2024 20:17 EST Hgb 14.4 Gm/dL 04/25/2024 20:17 EST Hct 41.7 % 04/25/2024 20:17 EST MCV 84.9 femtoliters 04/25/2024 20:17 EST MCH 29.3 pg 04/25/2024 20:17 EST MCHC 34.5 Gm/dL 04/25/2024 20:17 EST Platelet Count 286 k/mm3 04/25/2024 20:17 EST RDW-SD 37.6 femtoliters 04/25/2024 20:17 EST MPV 9.4 femtoliters 04/25/2024 20:17 EST Nucleated RBC (Automated) 0.0 #/100 WBC'S 04/25/2024 20:17 EST Abs. NRBC 0.0 k/mm3 04/25/2024 20:17 EST Abs. Neut 10.6 k/mm3 04/25/2024 20:17 EST Abs. Lymph 1.1 k/mm3 04/25/2024 20:17 EST Abs. [place] 1.1 k/mm3 04/25/2024 20:17 EST Abs. Eo 0.0 k/mm3 04/25/2024 20:17 EST Abs. Baso 0.1 k/mm3 04/25/2024 20:17 EST Neut % 81.7 % 04/25/2024 20:17 EST Lymph % 8.7 % 04/25/2024 20:17 EST [place] % 8.7 % 04/25/2024 20:17 EST Eos % 0.2 % 04/25/2024 20:17 EST Baso % 0.4 % 04/25/2024 20:17 EST Imm Gran 0.3 % 04/25/2024 20:17 EST Abs. Imm Gran 0.0 k/mm3 04/25/2024 20:17 EST Patient Instructions Please call your doctor if you note any of the following symptoms: - fever of 100.4 or greater - severe abdominal pain that does not improve - lightheadedness or syncope - heavy vaginal bleeding - difficulty or burning with urination - nausea and vomiting with inability to tolerate food for 24 hours - shortness of breath or chest pain ?? Please follow-up with your Repeat Photocomposing Machine Operator for outpatient evaluation. * Kathi Rodriguez DO: PERFORM Event Display: Discharge/Transfer Note Hospital Authored Date: [id number] Attending Attestation:??I have seen and evaluated this patient. ??I have discussed the case and itsmanagement with??Dr Ramsey??and agree with the findings and plan as documented above in the resident???s note. William is a 24yo G0 who initially presented to?[facility] with diarrhea, abdominal pain, and fever. Shehad a CT scan which showed an incidental finding of a left- sided adnexal mass concerning for possible tubo-ovarian abscess (TOA). Patient was started on empiric antibiotic treatment, then had a pelvic ultrasound which demonstrated a left-sided 7cm hemorrhagic ovarian cyst. No??evidence of torsion. Patient was counseled on this ultrasound??finding, likely physiologic in etiology. No indication forantibiotic treatment. No??indication for surgical intervention. Patient counseled on return precautions and cleared for discharge to home. All questions and concerns were addressed. She agrees with plan for outpatient follow up and returnprecautions * Sanket MUÑOZ, Cheryl Velasquez: PERFORM Event Display: Patient Education/Instruction Authored Date: [id number] Inpatient Adult Discharge Instructions. [address] [address] Name: WILLIAM RUIZ : 2000?? Visit: 04/26/2024 01:37?? Current Date: 04/26/2024 10:46 ?? Account: [id number]?? Inpatient Adult Discharge Instructions We would like to thank you for allowing us to assist you with your healthcare needs. The following includes patient education materials and information regarding your injury/illness. Our entire staffstrives to provide an excellent experience for our patients and their families. PLEASE ENSURE YOU FOLLOW-UP PER THE INSTRUCTIONS BELOW! ?? YOUR OPINION IS IMPORTANT TO US! Please complete the survey you may receive by mail or email. Your feedback will be used to make improvements to the healthcare experiences of our patients and their families. Surveys are administered by [employer] ?? If further treatment with your primary care physician or another doctor is recommended, it is important for you to keep the appointment. Call your primary care physician or return to the Emergency Department immediately if your condition worsens, fails to improve, or new symptoms develop. If you need to find a doctor, you can call [facility] Link for a referral at [phone] or toll free at [phone]) or log in to [email or web address].. ?? [facility], in keeping with [facility] guidance, no longer requires face masks for staff, patientsor visitors in most situations. Similiar to time spent indoors at other locations, there is the chance that you were exposed to repiratory viruses during your time with us (such as flu or COVID-19). If you develop symptoms concerning for a viral respiratory infection, please seek testing (and treatment if indicated) from your medical provider or home test kit. ?? You can view and manage your care through the patient portal or by using a health care zita of your choosing. [employer] is a website that allows you to securely view your medical information including your hospital discharge summary, office visit summaries, medications and follow-up visits. You can also request appointments, renew medications, and request access to your medical information using a health care zita of your choosing, or just ask a question. You can enroll at [email or web address] or register during your next office visit. You have been discharged from [facility], Patient Care Unit: S3??. If you have any questions regarding these instructions, including results of studies pending, afteryou leave, please call us and we will be happy to assist you 03/12. [facility] Your Care Team Attending Physician Yamlie MCCRAY, Manjeet Chaves?? Consulting Providers Manjeet Ovalle MD?? Discharging Providers Kathi Rodriguez DO Your Diagnosis Adnexal mass Diarrhea Hemorrhagic cyst of left ovary Tests Performed Below is a partial list of the tests performed during your hospitalization. You may have had other tests and procedures not included in this list. Please discuss all test results with your provider. HOLD LAVENDER TUBE Pelvic Doppler Comp (US) Pelvic Transabdominal US Pelvic Transvaginal (US) Hold Lavender Top Tube (HOLD LAVENDER TUBE)?? US Pelvic Doppler Comp (Pelvic Doppler Comp (US))?? US Pelvic Transabdominal (Pelvic Transabdominal US)?? US Pelvic Transvaginal (Pelvic Transvaginal (US))?? Vaginosis Panel, CTNG?? Primary Care Provider Ailx JUAN CARLOS, Nel Valles? Advance Directive Health Care Proxy on File Yes - Health Care Proxy Discharge Vitals Temperature: 98 DegF Pulse Rate:??104 bpm??High Respiratory Rate: 17 br/min Systolic Blood Pressure: 107 mm Hg Diastolic Blood Pressure: 69 mm Hg Oxygen Saturation: 98 % Studies Pending All studies ordered during this hospital stay have been completed unless listed below. Please discuss all pending results with your provider listed above in these instructions. ?? Vaginosis Panel, CTNG?? What to do next Instructions From Your Doctor Please call your doctor if you note any of the following symptoms: - fever of 100.4 or greater - severe abdominal pain that does not improve - lightheadedness or syncope - heavy vaginal bleeding - difficulty or burning with urination - nausea and vomiting with inability to tolerate food for 24 hours - shortness of breath or chest pain ?? Please follow-up with your Repeat Photocomposing Machine Operator for outpatient evaluation. ?? Orders? 04/26/24 10:06:00 EST?? Discharge Medications WILLIAM RUIZ :2000 Visit Date:04/26/2024 Medications: Please continue your medications until treatment is completed or stopped by your provider. Medications not listed below should be discontinued. Discuss any questions related to medications with your provider. What How Much When Instructions Next Dose New Acetaminophen (Tylenol 325 mg oral tablet) 975 Milligram Oral Every 6 hours as needed for Pain , Moderate Duration: 14 Days Pickup at [facility]/pharmacy #0838 as needed New Ibuprofen (ibuprofen 600 mg oral tablet) 1 tab(s) Oral 4 times a day as needed for for pain Duration: 14 Days Pickup at [facility]/pharmacy #0838 as needed New Ondansetron (ondansetron 4 mg oral tablet, disintegrating) 4 Milligram Oral Every 6 hours as needed for Nausea & Vomiting Duration: 3 Days Pickup at [facility]/pharmacy #0838 as needed [id number] [address], [place] [phone] Prescription Given During Visit Acetaminophen (Tylenol 325 mg oral tablet) - 975 mg, By Mouth, Every 6 hours, # 30 tablet, 0 Refills, [facility]/pharmacy #0838, [address] [place] [phone]?? Ibuprofen (ibuprofen 600 mg oral tablet) - 1 tablet = 600 mg, By Mouth, 4 times a day, # 30 tablet,0 Refills, [facility]/pharmacy #0838, [address] [place] [phone]?? Ondansetron (ondansetron 4 mg oral tablet, disintegrating) - 4 mg, By Mouth, Every 6 hours, # 5 tablet, 0 Refills, [facility]/pharmacy #0838, [address] [place] [phone]?? Laboratory Results Below is a partial list of the most recent Laboratory test results done prior to this discharge. You may have had other tests and procedures not included in this list. Please discuss all test resultswith your provider. HOLD LAVENDER TUBE (04/26/2024) ???Hold Lavender Top - SPECIMEN DISCARDED AFTER 24 HOURS. You will be contacted within 72 hours with your results. Allergies (NKA means No Known Allergies) NKA Problems Active Problems??(4) Annual physical exam?? Hx of scoliosis?? IBS (irritable colon syndrome)?? Low blood pressure, not hypotension?? Education Materials Below is the list of Educational Leaflet Providered with your Discharge Instructions. Valuables and Belongings I fully understand and agree that [facility] accepts no responsibility for all my personal property including clothing, toilet articles, radios, jewelry, dentures, hearing aids, rings, money, or any other property that is in my possession or is brought to me after admission. I understand certain valuables may be placed in a hospital safe for a short period of time. I understand that the hospital is not liable for loss or damage due to accident, fire, or other natural occurrence while said property is in the safe. I accept full responsibility for any personal property that I keep with me, and will not hold the hospital responsible in case of loss or disappearance. I acknowledge that i have been encouraged to send valuables and belongings home. ? Other Discharge Information ? Pulmonary Rehab Status?? Pulmonary Rehab Discharge Status?? Respiratory Rate: 17 br/min ? Common Emergency Awareness Tips IS IT A STROKE? Act FAST and Check for these signs: FACE Does the face look uneven? ARM Does one arm drift down? SPEECH Does their speech sound strange? TIME Call at any sign of stroke ?? Heart Attack Signs Chest discomfort: Most heart attacks involve discomfort in the center of the chest and lasts more than a few minutes, or goes away and comes back. It can feel like uncomfortable pressure, squeezing, fullness or pain. Discomfort in upper body: Symptoms can include pain or discomfort in one or both arms, back, neck, jaw or stomach. Shortness of breath: With or without discomfort. Other signs: Breaking out in a cold sweat, nausea, or lightheaded. Remember, MINUTES DO MATTER. If you experience any of these heart attack warning signs, call to get immediate medical attention! ?? Smoking can increase your chances of developing chronic health problems and can cause harmful effects to other family members in your house. If you smoke, you are strongly encouraged to quit. Please call [facility] [employer] Link at [phone] or [phone]) or log in to [email or web address] for referrals to smoking cessation programs. ?? 988 Suicide & Crisis Lifeline is available 03/12 if you or someone you know needs to find a reason to keep living. By calling 618 you'll be connected to a skilled, trained counselor at a crisis center in your area. INPATIENT DISCHARGE INSTRUCTIONS SIGNATURE PAGE WILLIAM RUIZ Location:[facility] Registration Date and Time:04/26/2024 01:37 EST Primary Care Physician: Alix RANGEL, Nel Valles, Attending Physician: Yamile MCCRAY, Manjeet Chaves, I WILLIAM RUIZ, have received the above patient education materials/instructions and have verbalized understanding. If ambulance or transport services are being used I further acknowledge being given a choice of service. ?? If you need to contact me, please call me at this number: . Patient/Purchasing Administrator Name: Patient/Purchasing Administrator Signature: Relationship to Patient: Witness Name/Signature: Date: Patient Care team information Care Team Personnel Name: Alix RANGEL, Nel Valles Position: [facility] PCO Associate Professional Member Role: PCP Address: [address] [place] [address] [id number] Telecom: Name: Hussein MUÑOZ, Julia Gregory Position: S RN Member Role: Primary Care Nurse Care Team Related Persons Name: KARY RUIZ Name: TOM RUIZ Insurance Providers Guarantor name: CHRISTO Health Plan Information #: 1 Payer: [facility] AN[employer] PPO Member Number: [id number] Policy Number: NA Group Number: [id number] Health Plan Information #: 2 Payer: [facility] [employer] PPO Member Number: [id number] Policy Number: NA Group Number: [id number]
== END 2024-05-15 15:41 | disposition home or self-care (01) ==
PROVIDERS: PCP Nurse Practitioner Family; Visit Provider Nurse Practitioner
DX: K58.0 Irritable bowel syndrome with diarrhea (principal); R17 Unspecified jaundice
CPT/HCPCS: 99214

== ENCOUNTER 2024-05-15 13:55 | Outpatient (REF) | payer BC, SELFPAY ==
[2024-05-15 15:59] LABS: MANUAL DIFF FLAG NO
[2024-05-15 16:35] LABS: Basophils Absolute Auto 0.1 X10*3/uL (0.0-0.2); Basophils Percent Auto 0.9 % (0-2); Eosinophils Absolute Auto 0.1 X10*3/uL (0.0-0.4); Eosinophils Percent Auto 1.5 % (0-4); Hematocrit 41.8 % (37.0-47.0); Hemoglobin 13.8 g/dl (12.0-16.0); Imm Gran Abs Auto 0.03 X10*3/uL (0.00-0.03); Imm Gran Pct Auto 0.3 % (0.0-0.4); Lymphocytes Percent Auto 23.3 % (20-40); Mean Corpuscular Hemoglobin 28.6 pg (27.0-33.0); Mean Corpuscular Volume 86.5 fL (80.0-98.0); Monocytes Absolute Auto 0.6 X10*3/uL (0.1-1.2); Neutrophils Absolute Auto 5.8 x10*3/uL (2.0-8.3); Platelet Count 395 X10*3/uL (160-400); Red Blood Count 4.83 X10*6/uL (4.20-5.50); Red Cell Distribution Width 12.6 % (11.0-16.0); White Blood Count 8.6 X10*3/uL (4.8-10.8)
[2024-05-15 17:11] LABS: Bilirubin Direct 0.1 mg/dL (0.0-0.5); Bilirubin Total 0.5 mg/dL (0.0-1.0)
== END 2024-05-15 13:56 | disposition home or self-care (01) ==
LOC: HO.LAB 13:55
PROVIDERS: PCP Nurse Practitioner Family; Visit Provider Nurse Practitioner
DX: R17 Unspecified jaundice (principal)
CPT/HCPCS: 36415; 82247; 82248; 85025

== ENCOUNTER 2024-10-30 15:29 | Outpatient (AMB) | payer BC, SELFPAY ==
--- NOTE | 2024-10-30 15:30 | A.OFFVIS_ITS ---
Vital Signs 10/30/24 15:37 Height 5 ft 7 in Weight 131 lb BMI 20.5 BP 108/62 Blood Pressure Location Rt brachial Position Sitting Pulse 90 Pulse Source Pulse Oximeter Pulse Oximetry (%) 99 Oxygen Delivery Method Room Air Intake Visit Reasons: Irritable bowel syndrome Intake Note: Est pt for IBS mgmt. Labs done. CC; C.O. chronic sx mgmt. Pt would like to review history and current status of her previous bacterial infection. Pt confirms that her medication works well when needed. Only taking PRN. Spa Manager/Esthetician Required: No Accompanied by: Self / Same As Patient Allergies No Known Allergies Allergy (Verified 10/30/24 15:30) HPI HPI Irritable bowel syndrome: Details: Assessment & Plan (1) Irritable bowel syndrome with diarrhea: Comment: NEGATIVE RAST FOR FOOD ALLERGIES, NEGATIVE CELIAC WORKUP, NEGATIVE CRP Code(s): K58.0 - Irritable bowel syndrome with diarrhea Category: Medical (2) Enteritis: Code(s): K52.9 - Noninfective gastroenteritis and colitis, unspecified Category: Medical (3) Total bilirubin, elevated: Code(s): R17 - Unspecified jaundice Category: Medical Plan Pt has been lost to follow up since 2022 Her IBS was resolving and she was dong well....until she developed some sort of severe diarrhea infe tion. Presented to the [facility] ER where they did a CT scan and told her she had colitis. However on reviewing that CT scan there was absolutely no indication of any colitis just that there was diarrhea and the colon. I think they were confused between the fat stranding found with the ovarian cyst. They did not do any stool studies but she did have leukocytosis of 12,000. It is entirely likely that this was either bacterial or viral but since it is now resolving and her stooling has been soft it is likely fruit list to do any stool testing. She continues to have severe fecal urgency and is moving her bowels up to 5 times a day despite the fact that the bowels are soft to formed. Obviously this is problem for her. I think what we are going to do is treat her with Zithromax as this covered the most amount of bacterial pathogens since it is too late to do stool samples and will give her some dicyclomine to use to try to ease her bowels. It is also entirely possible she is just having postinfectious bowel irritability because of the IBS. If it is not resolving or worsens then certainly we can consider doing additional testing. Return office visit at next available appointment. Orders: Orders Bilirubin Total Today R17 - Unspecified jaundice Complete Blood Count Auto Diff Today R17 - Unspecified jaundice Bilirubin Direct Today R17 - Unspecified jaundice Medications: New dicyclomine 20 mg PO QID 120 tabs 3RF 30 days K58.0 - Irritable bowel syndrome with diarrhea azithromycin (Zithromax Z-Hari) For 250 mg dose pack: take 500 mg today (day 1), then 250 mg for 4 days (days 2-5) PO 6 tabs 0RF K52.9 - Noninfective gastroenteritis and colitis, unspecified Laboratory Tests 03/08/23 05/15/24 16:33 15:57 WBC 8.6 Hgb 13.8 Hct 41.8 Plt Count 395 D Total Bilirubin 1.1 H 0.5 Direct Bilirubin 0.1 TODAYS VISIT She completed the zithrmax and bentyl. She stared on Citrucel and this really helped with the bowel urgency and IBS. She also had a surgery for the mass and it ended up being an endometrioma so she has endometriosis. She is having good success managing between Citrucel and 1/2 dose Miralax. I recommend that she take the Citrucle every day. [facility] History Diarrhea Surgical History H/O ovarian cystectomy No pertinent past surgical history Family History Maternal Aunt Breast cancer Maternal Grandfather Leukemia Brother History of IBS Mother Diverticulosis GERD (gastroesophageal reflux disease) Social History Alcohol intake: never Patient Tobacco Use Status: Never used Tobacco Review of Systems Const Denies fatigue, Denies fever(s), Denies night sweats, Denies poor appetite and Denies weight loss ENT Reports Normal hearing present, Denies dental pain, Denies dysphagia, Denies hearing loss, Denies mouth pain, Denies odynophagia, Denies throat swelling, Denies tongue swelling and Reports other (Dentition adequate) Card Reports no additional complaints Resp Reports no additional complaints GI Details: Denies abdominal pain, Denies melena, Denies bloating, Denies hematochezia, Reports constipation, Denies GI cramping, Denies dysphagia, Denies excessive flatus, Denies early satiety, Denies heartburn, Denies diarrhea, Denies nausea, Denies odynophagia, Denies vomiting and Denies hematemesis Skin/Breast Denies pruritus, Denies lesions, Denies rash and Denies jaundice Neuro Reports Normal hearing present and Denies Abnormal speech present Endo Denies fatigue Aller/Immun Denies throat swelling and Denies tongue swelling Physical Exam Vital Signs: Last Vital Signs Pulse 90 10/30/24 15:37 BP 108/62 10/30/24 15:37 Pulse Ox 99 10/30/24 15:37 Oxygen Delivery Method Room Air 10/30/24 15:37 BMI result Body Mass Index 20.5 Const General: cooperative, no acute distress, well developed and well groomed Nutritional Appearance: well nourished Orientation/consciousness: oriented to person, oriented to place and oriented to time Limitations: No language barrier HEENT Head: Yes normocephalic and Yes atraumatic Eyes General: appearance normal, both eyes and all related structures Pupils: Equal, round and reactive pupils present Neck Neck: Yes normal visual inspection and Yes no lymphadenopathy Thyroid: Thyroid normal Resp Effort & Inspection: normal respiratory effort and able to speak in complete sentences Auscultation: clear to auscultation bilaterally Cardio Rate: regular rate Rhythm: regular rhythm Heart sounds: Normal, physiologic split S2 sound present Peripheral pulses: radial pulses present and posterior tibial pulses present GI Inspection: No distended and No Abdominal panniculus present Palpation (GI): Soft to palpation, nontender, no guarding, not rigid and No hepatosplenomegaly present Percussion: Yes normal to percussion Auscultation: normal bowel sounds Rectal Exam - Female: deferred Skin General skin exam: no rashes or lesions noted, turgor normal, skin not dry, no jaundice, No spider nevi and no striae Rashes: no rashes Nails: normal Neuro General: oriented to person, oriented to place and oriented to time Cranial nerves: Yes Equal, round and reactive pupils present and Yes Normal hearing present Speech: No Abnormal speech present Extrem General: Yes normal to inspection, No clubbing, No cyanosis and No edema Psych Appearance: grossly normal and well kempt Mental Status: mental status grossly normal Speech and movement: Normal speech and movement present Affect: normal affect Attitude: cooperative Thought process: Normal thought process present and not confabulating Thought content: Normal thought content present Insight: Good insight present (Psych) Judgement: Good judgement present (Psych) Assessment & Plan Assessment & Plan (1) Irritable bowel syndrome with diarrhea: Comment: NEGATIVE RAST FOR FOOD ALLERGIES, NEGATIVE CELIAC WORKUP, NEGATIVE CRP Code(s): K58.0 - Irritable bowel syndrome with diarrhea Category: Medical Plan She completed the zithrmax and bentyl. She stared on Citrucel and this really helped with the bowel urgency and IBS. She also had a surgery for the mass and it ended up being an endometrioma so she has endometriosis. She is having good success managing between Citrucel and 1/2 dose Miralax. I recommend that she take the Citrucle every day. PRN Coding Level of Care Code Est Pt Level 3 (96689) Diagnoses Irritable bowel syndrome with diarrhea K58.0
--- OUTSIDE RECORDS SUMMARY | 2024-10-30 15:31 | XMS_ITS ---
Author Name [facility] Organization Unknown Care Team Organization Name Specialty Phone Email Start Date End [facility] [employer] [facility] 03/27/2024
[2024-10-30 15:37] VITALS: BP 108/62; PULSE 90; O2SAT 99; BMI 20.5
== END 2024-10-30 15:56 | disposition home or self-care (01) ==
LOC: HO.HGI 15:29
PROVIDERS: PCP Nurse Practitioner Family; Visit Provider Nurse Practitioner
DX: K58.0 Irritable bowel syndrome with diarrhea (principal)
CPT/HCPCS: 99213

== ENCOUNTER → 2024-10-30 15:29 | Outpatient (BNVA) | payer BC, SELFPAY | PROVIDERS: PCP Nurse Practitioner Family; Visit Provider Nurse Practitioner ==